=== PATIENT | female | born 1955 | race Caucasian/White ===

== ENCOUNTER 2018-07-06 09:31 | Day surgery (SDC) | payer OTHER ==
--- OUTSIDE RECORDS SUMMARY | 2018-07-06 09:48 | XMS REPORT | Continuity of Care Document ---
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 [facility] [place] Encounter for Active Problem 06/28/2018 [facility] health-related [facility] [place] screening Raynaud's Active Problem 06/28/2018 [facility] [place] without gangrene [facility] use Active Problem 06/28/2018 [facility] of systemic [facility] [place] steroids Myalgia Active Problem 06/28/2018 [facility] Encounter for Active Problem 06/28/2018 [facility] long-term use [facility] [place] of other medications Other specified Active Problem 06/28/2018 [facility] abnormal [facility] [place] findings of blood chemistry Abdominal pain Active Diagnosis 06/19/2018 [facility] medical terminologist use Active Diagnosis 06/19/2018 [facility] [place] non-steroidal anti-inflammato perry (NSAID) Raynaud's Active Diagnosis 06/19/2018 [facility] syndrome [facility] [place] Medications Medication Details Route Status Patient Ordering Order Source Instructions Provider Date NIFEdipine ER 1 tablet Orally Active 30 MG Orally Vo [facility] on an Once a day 016 [facility] empty [place] stomach Calcium + D 1 tablet Orally Active 315-200 Vo [facility] with meals MG-UNIT Orally Ctr of Once a day [place] Lipitor 1 tablet Orally Active 20 MG Orally Vo [facility] Once a day [facility] [place] PredniSONE 1 tablet Orally Active 10 MG Orally Vo Rhe[facility] with food Once a day Ctr of or milk [place] Rituxan 375mg/m2 Intravenous Active 100 MG/10ML Vo Rheum Intravenous Ctr of every 4 weeks [place] Benadryl 1 tablet Orally Active 200 mg Orally Vo [facility] as needed at bed time [facility] [place] ASA 1 tab Oral Active 325 mg Oral Vo [facility] once a day [facility] [place] Nexium 2 capsule Orally Active 40 MG Orally Vo [facility] Once a day [facility] [place] Gabapentin 1 capsule Orally Active 300 MG Orally Vo Rhe[facility] Three times a Ctr of day [place] Azathioprine 1 tablet Orally Active 50 MG Orally Vo Rhe[facility] twice a day [facility] [place] Sildenafil 1 tablet Orally Active 50 MG Orally Vo [facility] Citrate Twice a day [facility] [place] Multi Vitamin 1 tablet Orally Active Orally Once a Vo [facility] Daily day [facility] [place] Allergies, Adverse Reactions, Alerts Substance Category Reaction Severity Reaction Status Date Comments Source type Reported Methotrexate Adverse Info Not Adverse Active Rheum Reaction Available Reaction 8 [facility] [place] Immunizations Immunization Date Given Site Status Last Updated Comments Source Results Order Results Value Reference Date Interpretation Comments Source Name Range Vital Signs Vital Sign Value Date Comments Source Weight 147.4 12/23/2017 [facility] Height 72 12/23/2017 [facility] Heart Rate 111 12/23/2017 [facility] Diastolic (mm Hg) 79 12/23/2017 [facility] Systolic (mm Hg) 117 12/23/2017 [facility] Encounters Location Location Encounter Encounter Reason Attending ADM DC Status Source Details Type Number For Provider Date Date Visit Procedures Procedure Code Date Perfomer Comments Source
--- OUTSIDE RECORDS SUMMARY | 2018-07-06 09:49 | XMS REPORT ---
:1955 Author Organization eClinicalWorks Care Team Providers Name Role Phone Jay Arellano Provider Role Unavailable Allergies, Adverse Reactions, Alerts Substance Reaction Event Type N.K.D.A. 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 Medications Medication Code Code Instructions Start End Status Dosage System Date Date Rituxan [facility] [address]-33 10 MG/ML Apr 01, Active as Intravenous 2019 directed Sildenafil [facility] 34637843178 50 MG Orally Apr 01, Active 1 tablet Citrate Once a day 2019 as needed Esomeprazole [facility] 30148135623 40 MG Apr 01, Active as Sodium Intravenous 2019 directed Ibuprofen [facility] 29815639539 200 MG Orally Active 1 tablet Three times a with food day or milk as needed aspirin ND 0 Apr 01, Active not 2019 defined PredniSONE ND 39602512509 10 MG Orally Apr 01, Active 1 tablet Once a day 2019 NIFEdipine ND 70240307761 30 MG Orally Apr 01, Active as 2019 directed Results No Known Results Summary Purpose eClinicalWorks Submission
--- OUTSIDE RECORDS SUMMARY | 2018-07-06 09:49 | XMS REPORT ---
:1955 Author Organization eClinicalWorks Care Team Providers Name Role Phone Jay Arellano Provider Role Unavailable Allergies No Known Allergies Problems No Known Problems Medications No Known Medications Results No Known Results Summary Purpose eClinicalWorks Submission
--- OUTSIDE RECORDS SUMMARY | 2018-07-06 09:49 | XMS REPORT ---
:1955 Author Organization eClinicalWorks Care Team Providers Name Role Phone Maryanne Sumner Provider Role Unavailable Allergies, Adverse Reactions, Alerts Substance Reaction Event Type Methotrexate Info Not Available Drug Allergy Problems Problem Type Condition Code Onset Dates Condition Status Problem Heartburn R12 Active Problem Vitamin D deficiency E55.9 Active Problem Localized scleroderma L94.0 Active Problem Other terminal gauger (current) drug Z79.899 Active therapy Problem Encounter for health-related Z13.9 Active screening Problem Raynaud's syndrome without gangrene I73.00 Active Problem detention (current) use of systemic Z79.52 Active steroids Problem Myalgia M79.1 Active Problem Encounter for long-term (current) Z79.899 Active use of other medications Problem Other specified abnormal findings R79.89 Active of blood chemistry Assessment Multiple sclerosis G35 Active Assessment Abdominal pain R10.9 Active Assessment Other terminal gauger (current) drug Z79.899 Active therapy Assessment Heartburn R12 Active Assessment Localized scleroderma L94.0 Active Assessment detention (current) use of Z79.1 Active non-steroidal anti-inflammatories (NSAID) Assessment Raynaud's syndrome I73.00 Active Problem Multiple sclerosis G35 Active Medications Medication Code Code Instructions Start End Status Dosage System Date Date Calcium + D [facility] 89228735840 315-200 MG-UNIT Active 1 tablet Orally Once a with meals day Lipitor ND 15161308697 20 MG Orally Active 1 tablet Once a day PredniSONE ND 83274111795 10 MG Orally Active 1 tablet Once a day with food or milk Rituxan [facility] 63911698756 100 MG/10ML Active 375mg/m2 Intravenous every 4 weeks Benadryl ND 62748065405 200 mg Orally Active 1 tablet at bed time as needed ASA NDC 0 325 mg Oral Active 1 tab once a day Nexium ND 41984254774 40 MG Orally Active 2 capsule Once a day Gabapentin ND 44753050778 300 MG Orally Active 1 capsule Three times a day Azathioprine ND 34412725604 50 MG Orally Active 1 tablet twice a day Sildenafil [facility] 73328837903 50 MG Orally Active 1 tablet Citrate Twice a day Multi Vitamin [facility] 55927698933 Orally Once a Active 1 tablet Daily day NIFEdipine ER [facility] 29689941301 30 MG Orally Mar 10, Active 1 tablet Once a day 2015 on an empty stomach Vital Signs Date/Time: Dec 23, 2017 BMI 19.99 Index Weight 147.4 lbs Height 72 in Cardiac Monitoring Heart Rate 111 /min Blood Pressure Diastolic 79 mm Hg Blood Pressure Systolic 117 mm Hg Results No Known Results Summary Purpose eClinicalWorks Submission
--- OUTSIDE RECORDS SUMMARY | 2018-07-06 09:49 | XMS REPORT ---
:1955 Author Organization eClinicalWorks Care Team Providers Name Role Phone Maryanne Sumner Provider Role Unavailable Allergies No Known Allergies Problems Problem Type Condition Code Onset Dates Condition Status Problem Heartburn R12 Active Problem Vitamin D deficiency E55.9 Active Problem Localized scleroderma L94.0 Active Problem Multiple sclerosis G35 Active Problem Other detention (current) drug Z79.899 Active therapy Problem Encounter for health-related Z13.9 Active screening Problem Raynaud's syndrome without gangrene I73.00 Active Problem [facility] (current) use of systemic Z79.52 Active steroids Problem Myalgia M79.1 Active Problem Encounter for long-term (current) Z79.899 Active use of other medications Problem Other specified abnormal findings R79.89 Active of blood chemistry Medications No Known Medications Results No Known Results Summary Purpose eClinicalWorks Submission
--- OUTSIDE RECORDS SUMMARY | 2018-07-06 09:49 | XMS REPORT ---
[...] Start End Status Dosage System Date Date Sildenafil ND 41698279189 50 MG Orally Apr 01, Active 1 tablet Citrate Once a day 2019 as needed Ibuprofen ND 18122016225 200 MG Orally Active 1 tablet Three times a with food day or milk as needed Esomeprazole [facility] 51135752578 40 MG Apr 01, Active as Sodium Intravenous 2018 directed PredniSONE ND 41664166110 10 MG Orally Apr 01, Active 1 tablet Once a day [address] [facility] [address]-48 10 MG/ML Apr 01, Active as Intravenous [address] [facility] 0 Apr 01, Active [place] 2019 [place] [address]-50 30 MG Orally Apr 01, Active as 2019 directed Results No Known Results Summary Purpose eClinicalWorks Submission
--- OUTSIDE RECORDS SUMMARY | 2018-07-06 09:49 | XMS REPORT ---
:1955 Author Organization eClinicalWorks Care Team Providers Name Role Phone Maryanne Sumner Provider Role Unavailable Allergies No Known Allergies Problems Problem Type Condition Code Onset Dates Condition Status Problem Heartburn R12 Active Problem Vitamin D deficiency E55.9 Active Problem Localized scleroderma L94.0 Active Problem Multiple sclerosis G35 Active Problem Other nursing home (current) drug Z79.899 Active therapy Problem Encounter for health-related Z13.9 Active screening Problem Raynaud's syndrome without gangrene I73.00 Active Problem [facility] (current) use of systemic Z79.52 Active steroids Problem Myalgia M79.1 Active Problem Encounter for long-term (current) Z79.899 Active use of other medications Problem Other specified abnormal findings R79.89 Active of blood chemistry Medications No Known Medications Results No Known Results Summary Purpose eClinicalWorks Submission
[2018-07-06] MEDS ORDERED: Zoledronic Acid/Mannitol/Water 5 MG/100 ML INFUS.BOT IV ONE (10:00)
== END 2018-07-06 10:30 | disposition home or self-care (01) ==
LOC: DS 09:31
PROVIDERS: ATTEND Obstetrics & Gynecology
DX: M85.80 Other specified disorders of bone density and structure, unspecified site (principal)
CPT/HCPCS: 96365; J3489

== ENCOUNTER 2021-06-23 17:13 | Emergency (ER) | payer OTHER ==
--- OUTSIDE RECORDS SUMMARY | 2021-06-23 17:17 | XMS REPORT | Continuity of Care Document ---
:[address] [facility] t Address [address] [place] [address] Care Team Providers Name Role Phone TRINITY Primary Care Physician Unavailable RADIOLOGY Attending Clinician Unavailable Radiology Attending Clinician Unavailable VILARDO Admitting Clinician Unavailable Payers Payer Name Policy Type Policy Number Effective Date Expiration Date Jayro melchor MEDICARE PART A [id number] 2018 \T\ B 00:00:00 [employer] [id number] 2018 00:00:00 Problems Condition Condition Condition Status Onset Resolution Last Treating Co mments Source Name Details Category Date Date Treatment Clinician Date Temporary Temporary Disease Active Uni vers cerebral cerebral 4-29 ity of vascular vascular 00:00: [place] dysfunctio dysfunctio 00 Me dical n n Branch Multiple Multiple Disease Active Unive rs sclerosis, sclerosis, 3-16 it y of [place] 00 [facility] Branch Hyperlipid Hyperlipid Disease Active U nivers emia emia 3-16 ity of 00:00: [place] 00 Medical [facility] Osteopenia Osteopenia Disease Active 2016 U nivers 3-16 ity of 00:00: [place] 00 [facility] Neuropathy Neuropathy Disease Active U nivers , , 3-16 [place] peripheral peripheral [place] Pain in Pain in Diagnosis [facility] left wrist left wrist Me moria l Outpati ent Clinics Closed Closed Diagnosis Active [facility] nondisplac nondisplac Shilpa kes - ed ed Memoria fracture fracture l of of Outpati triquetrum triquetrum en t of left of left Clinics wrist, wrist, initial initial encounter encounter Carpal Carpal Diagnosis Active [facility] instabilit instabilit Shilpa kes - y of left y of left [place] wrist with wrist with l dorsal dorsal Outpati intercalat intercalat en t ed segment ed segment Cl inics instabilit instabilit y y Allergies, Adverse Reactions, Alerts Allergy Allergy Status Severity Reaction(s) Onset Inactive Treating Comm ents Source Name Type Date Date Clinician NO KNOWN Drug Active Univers ALLERGIE Class ity of [facility] NO KNOWN Allergy Active [facility] Social History Social Habit Start Date Stop Date Quantity Comments Source Exposure to Not sure [facility] SARS-CoV-2 [place] [facility] (event) [place] Alcohol intake 2015-11-10 2015-11-10 Current drinker Unive rsity of 00:00:00 00:00:00 of alcohol [place] [facility] (finding) [place] Sex [birth year] Universit y of 00:00:00 00:00:00 [facility] Smoking Status Start Date Stop Date Source Never smoker [facility] Medications Ordered Filled Start Stop Current Ordering Indication Dosage Frequency Signature Comments Components Source Medication Medication Date Date Medication? Clinician (SIG) Name Name Esomeprazol Esomeprazol 2018- Yes Jay as [facility] Sodium e Sodium 04-01 Arellano directed Patric es - 00:00: [facility] 00 l Outpati ent Clinics PredniSONE PredniSONE Yes Jay [address] [facility] - Arellano [facility] - 00:00: [facility] 00 [facility] Outpati ent Clinics Rituxan Rituxan 2018- Yes Jay as [facility] -03 Arellano directed [facility] - 00:00: [facility] ent Clinics aspirin aspirin 2018- Yes Jay not [facility] -03 Arellano defined [facility] - 00:00: [facility] 00 l Outpati ent Clinics NIFEdipine NIFEdipine 2018- Yes Jay as [facility] 1-03 Arellano directed [facility] - 00:00: [facility] 00 l Outpati ent Clinics Sildenafil Sildenafil 2018- Yes Jay [address] [address] Citrate Citrate 04-01 Arellano as needed Luke s - 00:00: Memoria 00 l Outpati ent Clinics dimethyl Yes 240mg Take 240 Univ ers fumarate 9-13 mg by ity of (TECFIDERA) 10:14: mouth 2 Anthony as 240 mg 24 (two) Medical capsule times Branch daily. atorvastati Yes 20mg Take 20 mg Univers n (LIPITOR) 9-13 by mouth 2 it y of 20 mg 10:14: (two) [place] tablet 24 times Medical daily. Branch FA/MV,CA,IR Yes 1{tbl} Take 1 Tab Univers ON,MIN/LYCO 9-13 by mouth ity of PENE/LUT 10:14: daily. [place] (MULTIVITAL 24 Medical ORAL) Branch calcium-vit Yes 1{tbl} Take 1 Tab Univers clarke D 9-13 by mouth 2 ity of (OSCAL-500) 10:14: (two) [place] 500 24 times Medical mg(1,250mg) daily. Branch -200 unit per tablet lansoprazol Yes 30mg Take 30 mg Univers e 9-13 by mouth ity of (PREVACID) 10:14: daily. [place] 30 mg 24 Medical capsule Branch venlafaxine Yes 75mg Take 75 mg Univers XR (EFFEXOR 8-12 by mouth ity of XR) 75 mg 10:08: daily with [place] 24 [place] 37 breakfast. Medical capsule Branch hydroxychlo Yes 300mg Take 1.5 U nivers roquine 8-12 tablets by ity of (PLAQUENIL) 00:00: mouth [place] 200 mg 00 daily. Medical tablet Branch aspirin 325 Yes 325mg Take 1 Uni vers mg tablet 8-01 tablet by ity o f 00:00: mouth [place] 00 daily. Medical Branch Ibuprofen Ibuprofen Yes Jay [address] [facility] [address] Arellano with food [facility] - or milk as [facility] Clin[facility] Procedures Procedure Date / Time Performing Clinician Source Performed DEXA AXIAL (HIP AND SPINE) 2021-06-05 15:58:35 Requisition, Madi cho [facility] NOTICE OF BILLING 2021-06-05 15:43:58 Doctor Unassigned, [facility] PRACTICES FOR MEDICARE [facility] PATIENTS [facility] PATIENT FINANCIAL 2021-06-05 15:43:42 [facility]IC[facility] NO SHOW OR MISSED 2021-06-05 15:43:27 Doctor Unassigned, [facility] APPOINTMENT POLICY [facility] ACKNOWLEDGEMENT NOTICE OF PRIVACY 2021-06-05 15:43:15 Doctor Unapascale, Eric [facility] PRACTICES [facility] CONSENT/REFUSAL FOR 2021-06-05 15:42:50 Doctor Unapascale, Unive [facility] DIAGNOSIS AND TREATMENT [facility] ASSIGNMENT OF BENEFITS 2021-06-05 15:42:36 Doctor Unassigned, [facility] Encounters Start End Encounter Admission Attending Care Care Encounter Source Date/Time Date/Time Type Type Clinicians Facility Department ID 2021-06-05 2021-06-05 Outpatient R RADIOLOGY [facility] [id number] Univers 09:46:14 23:59[facility]-06-[facility] 2021-06-05 Hospital Radiology [facility] [id number] Univers 09:40:00 23:59:00 [facility] [place] [id number] [id number] [facility] 800 Branch 2021-06-05 2021-06-05 Outpatient R RADIOLOGY [facility] [id number] Univers 00:00:00 00:00:00 [id number] it of [facility] 2018-05-03 2018-05-03 [facility] [place] [id number] [address] 14:00:00 14:00:00 [facility] 2018-04-02 2018-04-02 [facility] [id number] 09:49:00 09:49:00 [facility] 2018-04-01 2018-04-01 [facility] [id number] 11:00:00 11:00:00 [facility] Results This patient has no known results.
--- NOTE | 2021-06-23 19:44 | RAD REPORT ---
EXAM DESCRIPTION: RAD - Wrist Left 3 View - 06/23/2021 6:54 pm CLINICAL HISTORY: Left wrist pain status post injury FINDINGS: No fracture or dislocation is seen. 6 millimeter lucency within the scaphoid with a sclerotic border may represent a cyst. If the patient continues to have symptoms to suggest an occult fracture then a followup plain film se perry in 7 days would be recommended
--- NOTE | 2021-06-23 20:12 | EDPHYS ---
Physician Documentation [facility] Name: Steffanie Downs Age: 66 yrs Sex: Female : 1955 Arrival Date: 06/23/2021 Time: 17:16 Bed 7 Private MD: ED Physician Eduardo Barreto HPI: 06/23 19:35 This 66 yrs old Female presents to ER via Ambulatory with complaints of Fall Injury. 7 19:35 Details of fall: The patient fell from an upright position, while walking, and struck a mh7 concrete surface. Onset: The symptoms/episode began/occurred 3 day(s) ago. Associated injuries: The patient sustained injury to the head, contusion, left wrist, painful injury. Severity of symptoms: At their worst the symptoms were moderate, 3 day(s) ago, in the emergency department the symptoms have improved, moderately. States that she was walking and stepped off a curb onto outstretched hand hitting her face and left wrist 3 days ago. Denies any LOC or other complaints.. Historical: - Allergies: 17:35 No Known Allergies; ab2 - PMHx: 17:35 Raynauds; Scleraderma; Multiple sclerosis; Rheumatoid arthritis; ab2 - PSHx: 17:35 Appendectomy; ab2 - Immunization history:: Client reports receiving the 2nd dose of the Covid vaccine. - Social history:: Smoking status: Patient denies any tobacco usage or history of. ROS: 19:35 Constitutional: Negative for fever, chills, and weight loss, Eyes: Negative for injury, mh7 pain, redness, and discharge, ENT: Negative for injury, pain, and discharge, Neck: Negative for injury, pain, and swelling, Cardiovascular: Negative for chest pain, palpitations, and edema, Respiratory: Negative for shortness of breath, cough, wheezing, and pleuritic chest pain, Abdomen/GI: Negative for abdominal pain, nausea, vomiting, diarrhea, and constipation, Back: Negative for injury and pain, : Negative for injury, bleeding, discharge, and swelling, Neuro: Negative for headache, weakness, numbness, tingling, and seizure, Psych: Negative for depression, anxiety, suicide ideation, homicidal ideation, and hallucinations, Allergy/Immunology: Negative for hives, rash, and allergies, Endocrine: Negative for neck swelling, polydipsia, polyuria, polyphagia, and marked weight changes, Hematologic/Lymphatic: Negative for swollen nodes, abnormal bleeding, and unusual bruising. Exam: 19:35 Constitutional: This is a well developed, well nourished patient who is awake, alert, mh7 and in no acute distress. Eyes: Pupils equal round and reactive to light, extra-ocular motions intact. Lids and lashes normal. Conjunctiva and sclera are non-icteric and not injected. Cornea within normal limits. Periorbital areas with no swelling, redness, or edema. Neck: Trachea midline, no thyromegaly or masses palpated, and no cervical lymphadenopathy. Supple, full range of motion without nuchal rigidity, or vertebral point tenderness. No Meningismus. Chest/axilla: Normal chest wall appearance and motion. Nontender with no deformity. No lesions are appreciated. Cardiovascular: Regular rate and rhythm with a normal S1 and S2. No gallops, murmurs, or rubs. Normal PMI, no JVD. No pulse deficits. Respiratory: Lungs have equal breath sounds bilaterally, clear to auscultation and percussion. No rales, rhonchi or wheezes noted. No increased work of breathing, no retractions or nasal flaring. Abdomen/GI: Soft, non-tender, with normal bowel sounds. No distension or tympany. No guarding or rebound. No evidence of tenderness throughout. Back: No spinal tenderness. No costovertebral tenderness. Full range of motion. Skin: Warm, dry with normal turgor. Normal color with no rashes, no lesions, and no evidence of cellulitis. 19:35 Neuro: Awake and alert, GCS 15, oriented to person, place, time, and situation. Cranial nerves II-XII grossly intact. Motor strength 5/5 in all extremities. Sensory grossly intact. Cerebellar exam normal. Normal gait. Psych: Awake, alert, with orientation to person, place and time. Behavior, mood, and affect are within normal limits. 19:35 Musculoskeletal/extremity: Extremities: noted in the left wrist: abrasion, tenderness, ROM: limited active range of motion due to pain, in the left wrist, limited passive range of motion due to pain, in the left wrist, Circulation is intact in all extremities. Sensation intact. Compartment Syndrome exam of affected extremity: is normal. no numbness, no tingling, no sensation deficit, no palor, no weak pulses, Joints: the left wrist displays painful range of motion, tenderness, Weight bearing: able to fully bear weight, without difficulty, Tendon exam: specific tendon testing normal through active and passive range of motion 19:35 Head/face: Noted is ecchymosis, that is mild, of the right periorbital area. [facility] 19:35 ENT: External ear(s): are unremarkable, Ear canal(s): are normal, TM's: are normal, no hemotympanum, no rupture, hemotympanum, is not appreciated, bilaterally, Nose: is normal, Mouth: is normal, Posterior pharynx: is normal, Dental exam: normal, Voice: is normal. 19:35 Eyes: Periorbital structures: ecchymosis, that is mild, on the right periorbital area. [facility] 19:35 Eyes: Pupils: equal, round, and reactive to light and accomodation, Extraocular movements: intact throughout, Conjunctiva: normal, Sclera: no appreciated abnormality. Vital Signs: 17:33 BP 164 / 104; Pulse 79; Resp 17; Temp 98.1; Pulse Ox 100% on R/A; Weight 68.04 kg; ab2 Height 6 ft. 0 in. (182.88 cm); Pain 3/10; 20:06 BP 169 / 88; Pulse 77; Resp 16 S; Pulse Ox 100% on R/A; bb 17:33 Body Mass Index 20.34 (68.04 kg, 182.88 cm) ab2 Procedures: 20:12 Splinting: Splint applied to left wrist using wrist splint, Thumb spica. applied by [facility] nurse. Examined by me, post splint application: neurovascular intact, 2+ distal pulses palpable, brisk capillary refill noted, Patient tolerated well, preformed splint. MDM: 20:06 Differential diagnosis: abrasion, closed head injury, contusion, fracture. Data [facility] reviewed: vital signs, nurses notes, radiologic studies, plain films. Data interpreted: Pulse oximetry: on room air is 100 %. Interpretation: normal. Counseling: I had a detailed discussion with the patient and/or guardian regarding: the historical points, exam findings, and any diagnostic results supporting the discharge/admit diagnosis, the presence of at least one elevated blood pressure reading (>120/80) during this emergency department visit, radiology results, the need for outpatient follow up, a orthopedic surgeon, to return to the emergency department if symptoms worsen or persist or if there are any questions or concerns that arise at home. Response to treatment: the patient's symptoms have markedly improved after treatment. Refusal of service: The patient/guardian displays adequate decision making capability and despite a detailed discussion of alternatives, benefits, risks, and consequences refuses: CT Scan. ED course: Well appearing, NAD, VSS, no focal neurological deficits. Discussed test results and findings and placement in left thumb spica splint and ortho follow up. Patient declined CT head/face for injury stating that she has already been evaluated by a doctor for this. She will follow up with her doctor.. 20:11 Patient medically screened. 7 20:14 Refusal of service: The patient/guardian displays adequate decision making capability mh7 and despite a detailed discussion of alternatives, benefits, risks, and consequences refuses: Medications. ED course: States that she is taking Ibuprofen at home and declines any other medication offer.. 06/23 17:53 Order name: Wrist Left (3 View) XRAY; Complete Time: 19:49 iw 06/23 19:51 Order name: Thumb Spica Splint: Left wrist; Complete Time: 20:08 mh7 Administered Medications: No medications were administered Disposition Summary: 06/23/21 20:11 Discharge Ordered Location: Home mh7 Problem: new mh7 Symptoms: have improved mh7 Condition: Stable mh7 Diagnosis - Fall (on)(from) sidewalk curb mh7 - Pain in left wrist - Sprain mh7 - Facial injury,contusion mh7 Followup: mh7 - With: Private Physician - When: 1 - 2 days - Reason: Worsening of condition, Recheck today's complaints, Continuance of care, Re-evaluation by your physician Followup: mh7 - With: Carlo Jimenez MD - When: 2 - 3 days - Reason: Worsening of condition, Recheck today's complaints Discharge Instructions: - Discharge Summary Sheet mh7 - Wrist Splint, Adult, [id number] mh7 - Wrist Pain, Adult, [id number] mh7 - Facial or Scalp Contusion, [id number] mh7 - Wrist Sprain, Adult mh7 Forms: - Medication Reconciliation Form mh7 - Thank You Letter mh7 - Antibiotic Education 7 - Prescription Opioid Use [facility] Signatures: Dispatcher [employer] Eduardo Martinez MD MD 7 Eric Whipple ab2 Corrections: (The following items were deleted from the chart) 17:36 17:35 PSHx: None; ab2 ab2
--- NOTE | 2021-06-23 20:12 | ER ---
Nurse's Notes [facility] Name: Steffanie Downs Age: 66 yrs Sex: Female : 1955 Arrival Date: 06/23/2021 Time: 17:16 Bed 7 Private MD: Diagnosis: Fall (on)(from) sidewalk curb;Pain in left wrist-Sprain;Facial injury,contusion Presentation: 06/23 17:33 Chief complaint: Patient states: "On I stepped off the curb wrong and face ab2 planted, I tried to catch myself and hurt my wrist." Pt c/o left wrist pain. Coronavirus screen: Vaccine status: Patient reports receiving the 2nd dose of the covid vaccine. Client denies travel out of the [place] in the last 14 days. At this time, the client does not indicate any symptoms associated with coronavirus-19. Ebola Screen: Patient negative for fever greater than or equal to 101.5 degrees Fahrenheit, and additional compatible Ebola Virus Disease symptoms Patient denies exposure to infectious person. Patient denies travel to an Ebola-affected area in the 21 days before illness onset. No symptoms or risks identified at this time. Initial Sepsis Screen: Does the patient meet any 2 criteria? No. Patient's initial sepsis screen is negative. Does the patient have a suspected source of infection? No. Patient's initial sepsis screen is negative. Risk Assessment: Do you want to hurt yourself or someone else? Patient reports no desire to harm self or others. Onset of symptoms is unknown. 17:33 Method Of Arrival: Ambulatory ab2 18:49 Acuity: KRISTIE 3 ab2 Triage Assessment: 17:36 General: Appears in no apparent distress. uncomfortable, Behavior is calm, cooperative, ab2 appropriate for age. Pain: Complains of pain in left wrist and left hand. Neuro: Level of Consciousness is awake, alert, obeys commands, Oriented to person, place, time, situation, Appropriate for age. Respiratory: No deficits noted. Airway is patent Respiratory effort is even, unlabored, Respiratory pattern is regular, symmetrical. Historical: - Allergies: 17:35 No Known Allergies; ab2 - PMHx: 17:35 Raynauds; Scleraderma; Multiple sclerosis; Rheumatoid arthritis; ab2 - PSHx: 17:35 Appendectomy; ab2 - Immunization history:: Client reports receiving the 2nd dose of the Covid vaccine. - Social history:: Smoking status: Patient denies any tobacco usage or history of. Screenin:06 Abuse screen: Denies threats or abuse. Nutritional screening: No deficits noted. bb Tuberculosis screening: No symptoms or risk factors identified. Fall Risk None identified. Assessment: 20:06 General: Appears in no apparent distress. Behavior is calm, cooperative. Pain: bb Complains of pain in left wrist. Neuro: Level of Consciousness is awake, alert, obeys commands, Oriented to person, place, time, situation. Cardiovascular: Capillary refill < 3 seconds Patient's skin is warm and dry. Respiratory: Airway is patent Respiratory effort is even, unlabored, Respiratory pattern is regular. GI: No signs and/or symptoms were reported involving the gastrointestinal system. Derm: Skin is pink, warm \\T\\ dry. Musculoskeletal: Circulation, motion, and sensation intact. Reports pain in left wrist. 20:07 Derm: Bruising that is dark purple, to right eye. bb 20:17 Reassessment: Patient is alert, oriented x 3, equal unlabored respirations, skin bb warm/dry/pink. splint in place to left wrist pt able to use wrist states it feels better with the splint. Pt verbalized understanding of and agrees to plan of care discharge instructions given pt ambulated with steady gait to exit accompanied by family. Vital Signs: 17:33 BP 164 / 104; Pulse 79; Resp 17; Temp 98.1; Pulse Ox 100% on R/A; Weight 68.04 kg; ab2 Height 6 ft. 0 in. (182.88 cm); Pain 3/10; 20:06 BP 169 / 88; Pulse 77; Resp 16 S; Pulse Ox 100% on R/A; bb 17:33 Body Mass Index 20.34 (68.04 kg, 182.88 cm) ab2 ED Course: 17:16 Patient arrived in ED. mr 17:35 Triage completed. ab2 17:36 Arm band placed on right wrist. ab2 18:56 Wrist Left (3 View) XRAY In Process Unspecified. EDMS 19:02 Eduardo Barreto MD is Attending Physician. 7 20:06 Ana Pizarro RN is Primary Nurse. bb 20:06 Patient has correct armband on for positive identification. bb 20:06 No provider procedures requiring assistance completed. Patient did not have IV access bb during this emergency room visit. 20:09 Carlo Jimenez MD is Referral Physician. [facility] Administered Medications: No medications were administered Outcome: 20:11 Discharge ordered by . Luana 20:19 Discharged to home ambulatory, with family. bb 20:19 Condition: stable 20:19 Discharge instructions given to patient, Instructed on discharge instructions, follow up and referral plans. Demonstrated understanding of instructions, follow-up care. 20:19 Patient left the ED. bb Signatures: Dispatcher [employer] EDMS PrettyErika chen mr Ana Pizarro RN RN bb Eduardo Barreto MD MD [facility] Eric Whipple ab2 Corrections: (The following items were deleted from the chart) 17:36 17:35 PSHx: None; ab2 ab2 18:50 17:33 Acuity: KRISTIE 4 ab2 ab2
[2021-06-23 20:50] VITALS: TEMP 98.1; O2SAT 100
[2021-06-23 20:58] VITALS: BP 169/88
== END 2021-06-23 20:19 | disposition home or self-care (01) ==
LOC: ER 17:13
DX: S00.83XA Contusion of other part of head, initial encounter (principal); M25.532 Pain in left wrist; W17.89XA Other fall from one level to another, initial encounter; Y93.89 Activity, other specified; Y92.480 Sidewalk as the place of occurrence of the external cause
CPT/HCPCS: 99283

== ENCOUNTER 2021-09-02 17:49 | Emergency (ER) | payer OTHER ==
--- OUTSIDE RECORDS SUMMARY | 2021-09-02 17:52 | XMS REPORT | Continuity of Care Document ---
:1955 Author Organization [facility] t Address [address] [place] [address] Care Team Providers Name Role Phone TRINITY Primary Care Physician Unavailable RADIOLOGY Attending Clinician Unavailable Radiology Attending Clinician Unavailable VILARDO Admitting Clinician Unavailable Payers Payer Name Policy Type Policy Number Effective Date Expiration Date Jayro melchor MEDICARE PART A [id number] 2018 \T\ B 00:00:00 [employer] [id number] 2018 00:00:00 Problems Condition Condition Condition Status [...] [place] 00 [facility] Hyperlipid Hyperlipid Disease Active U nivers emia emia 3-16 ity of 00:00: [place] 00 [facility] Osteopenia Osteopenia Disease Active 2016 U nivers 3-16 ity of 00:00: [place] 00 [facility] Neuropathy Neuropathy Disease Active U nivers , , 3-16 ity of peripheral peripheral 00:[place]: [place] [facility] Pain in Pain in Diagnosis Active Commo n joint of joint of Spirit left wrist left wrist - [facility] Closed Closed Diagnosis Active Common nondisplac nondisplac Sp aleksandra ed ed - [facility] fracture fracture [facility] triquetrum triquetrum Me dical of left of left Center wrist, wrist, initial initial encounter encounter Carpal Carpal Diagnosis Active Common instabilit instabilit Sp aleksandra y of left y of left - [facility] I wrist with wrist with St dorsal dorsal [facility] intercalat intercalat Me dical ed segment ed segment Ce nter instabilit instabilit y y Allergies, Adverse Reactions, Alerts Allergy Allergy Status Severity Reaction(s) Onset Inactive Treating Comm ents Source Name Type Date Date Clinician NO KNOWN Allergy Active [facility] NO KNOWN Drug Active [facility] ALLERGIE Class ity of S [facility] Social History Social Habit Start Date Stop Date Quantity Comments Source Exposure to Not sure [facility]-CoV-2 [facility] (event) [place] Alcohol intake 2015-11-10 2015-11-10 Current drinker Unive rsity of 00:00:00 00:00:00 of alcohol [facility] (finding) Branch Sex Assigned At [birth year] Universit y of 00:00:00 00:00:00 [facility] Smoking Status Start Date Stop Date Source Never smoker [facility] Medications Ordered Filled Start Stop Current Ordering Indication Dosage Frequency Signature Comments Components Source Medication Medication Date Date Medication? Clinician (SIG) Name Name Esomeprazol Esomeprazol 2019-0 Yes Jay as Common e Sodium e Sodium 04-01 Arellano directed Spi rit 00:00: - [facility] PredniSONE PredniSONE 2019-0 Yes Jay 1 tablet Common 04-01 Arellano Spirit 00:00: - [facility] Rituxan Rituxan 2019-0 Yes Jay as Comm on 04-01 Arellano directed Spirit 00:00: - [facility] aspirin aspirin 2019-0 Yes Jay not Comm on 04-01 Arellano defined Spirit 00:00: - [facility] NIFEdipine NIFEdipine 2019-0 Yes Jay as Common 04-01 Arellano directed Spirit 00:00: - [facility] Sildenafil Sildenafil 2019-0 Yes Jay 1 tablet Common Citrate Citrate 03 Arellano as needed Spir it 00:00: - [facility] dimethyl 2016-0 Yes 240mg Take 240 Univ ers fumarate [...] by mouth ity of PENE/LUT 10:14: daily. [place] (MULTIVITAL 24 Medical ORAL) Branch calcium-vit Yes [...] Branch Ibuprofen Ibuprofen Yes Jay 1 tablet Common Arellano with food Spirit or milk as - [facility] needed [facility] Procedures Procedure Date / Time Performing Clinician Source Performed DEXA AXIAL (HIP AND SPINE) 2021-06-05 15:58:35 Requisition, Madi cho [facility] NOTICE OF BILLING 2021-06-05 15:43:58 Doctor Cesar, [place] [employer] FOR MEDICARE [facility] PATIENTS [facility] PATIENT FINANCIAL 2021-06-05 15:43:42 Doctor Cesar, [facility] POLICY [facility] NO SHOW OR MISSED 2021-06-05 15:43:27 Doctor Cesar, [place] [employer] APPOINTMENT POLICY [facility] ACKNOWLEDGEMENT NOTICE OF PRIVACY 2021-06-05 15:43:15 Doctor Unassigned, [place] [employer] [facility] CONSENT/REFUSAL FOR 2021-06-05 15:42:50 Doctor Unassigned, Unive [facility] DIAGNOSIS AND TREATMENT [facility] ASSIGNMENT OF BENEFITS 2021-06-05 15:42:36 [facility], [facility] Encounters Start End Encounter Admission Attending Care Care Encounter Source Date/Time Date/Time Type Type Clinicians Facility Department ID 2021-06-05 2021-06-05 Outpatient R RADIOLOGY [facility] [id number] Univers 09:46:14 23:59:00 ity of [facility] 2021-06-05 2021-06-05 Hospital Radiology [facility] [id number] Univers 09:40:00 23:59:00 Encounter [place] [id number] ity [facility] [id number] [facility] [id number] [place] [id number] Branch 2021-06-05 2021-06-05 Outpatient R RADIOLOGY [facility] [id number] Univers 00:00:00 00:00:00 [id number] ity of [facility] 2018-05-03 2018-05-03 Outpatient [place] 23 [id number] Common 14:00:00 14:00:00 [facility] 2018-04-02 2018-04-02 Outpatient [place] [id number] Common 09:49:00 09:49:00 t [facility] Bone [facility] Sp[facility] t and Joint Joint - [facility] 2018-04-01 2018-04-01 Outpatient Steve [place] 23 [id number] Common 11:00:00 11:00:00 t [facility] Bone and Spiri t and Joint Joint - [facility] Results This patient has no known results.
--- NOTE | 2021-09-02 18:21 | RAD REPORT ---
EXAM DESCRIPTION: CT - Head Brain Wo Cont - 09/02/2021 6:10 pm CLINICAL HISTORY: Neuro deficit, acute, stroke suspected COMPARISON: Brain W/Wo Cont dated 04/05/2020 TECHNIQUE: Axial 5 mm thick images of the head were obtained without IV contrast. All CT scans are performed using dose optimization technique as appropriate and may include automated exposure control or mA/KV adjustment according to patient size. FINDINGS: No intracranial hemorrhage is present. No mass effect, edema or shift of midline structure s. No cortical based infarction is evident. No cortical edema or sulcal effacement. No abnormal extra -axial fluid collections. Ventricles are normal. Atrophy changes are minimal. Prominent chronic ische fermin changes are seen in the cerebral white matter similar to the MRI findings. Mastoid air cells are clear. Minimal fluid level in the left maxillary sinus. No acute bony findings. Findings telephoned to Dr Parada 6:16 p.m. IMPRESSION: No intracranial hemorrhage. No acute cortical level infarction identifiable. Prominent chronic ischemic changes are seen in the cerebral white matter. Chronic ischemic changes can mask nonhemorrhagic acute infarction. MR brain followup can be obtained if there is ongoing concern for acute ischemia.
[2021-09-02 18:25] LABS: Absolute Lymphocytes (CBC) 1.1 K/uL (0.7-4.9); Hematocrit 42.5 % (36.0-45.0); MPV 6.8 fL (7.6-11.3); RBC Red Blood Cell Count 4.94 M/uL (3.86-4.86)
[2021-09-02] MEDS ORDERED: LABETALOL HCL 100 MG/20 ML ONE (18:30)
[2021-09-02 18:31] LABS: Protime INR 0.94
[2021-09-02] MEDS ORDERED: TENECTEPLASE 50 MG/10 ML VIAL IV ONE (18:31)
[2021-09-02] MEDS ORDERED: MORPHINE 2 MG/ML SYR ONE (18:37)
[2021-09-02] MEDS ORDERED: ONDANSETRON 4 MG/2 ML VIAL ONE (18:38)
[2021-09-02 18:39] LABS: Potassium 3.3 mmol/L (3.5-5.1)
--- NOTE | 2021-09-02 19:09 | RAD REPORT ---
EXAM DESCRIPTION: RAD - Chest Single View - 09/02/2021 6:33 pm CLINICAL HISTORY: expressive aphasia, Stroke protocol chest film COMPARISON: Portable 10/16/2016 TECHNIQUE: AP portable chest image was obtained 09/02/2021 6:33 pm . FINDINGS: No acute lung parenchymal process. Chronic interstitial lung disease and right apical pleu ral scarring noted and stable. Heart and vasculature are normal. No measurable pleural effusion and n o pneumothorax. No acute bony abnormality seen. No acute aortic findings suspected. IMPRESSION: No acute cardiopulmonary process. No significant change from comparison study.
--- NOTE | 2021-09-02 20:02 | RAD REPORT ---
EXAM DESCRIPTION: CT - Head angio - 09/02/2021 7:28 pm CLINICAL HISTORY: Neuro deficit, acute, stroke suspected TECHNIQUE: During dynamic enhancement using nonionic IV contrast, axial 1 millimeter thick images of the head were obtained. Sagittal and axial reconstruction images were generated using MIP technique and reviewed. All CT scans are performed using dose optimization technique as appropriate and may include automated exposure control or mA/KV adjustment according to patient size. COMPARISON: CT head same date FINDINGS: No aneurysm or vascular malformation identified. Major venous sinuses are patent. No stenosis, named branch occlusion, vasculitis or other significant vascular finding identifiable. A therosclerotic calcifications are present in the bilateral internal carotid artery cavernous and supr aclinoid portions. These atherosclerotic changes to not cause significant luminal narrowing. There is mild tortuosity of the vertebrobasilar vasculature. The right P1 [employer] segment is absent or atrophic a s normal anatomic variant. The patient has a large right posterior communicating artery supplying the right [employer] distribution. IMPRESSION: No named branch occlusion, significant stenosis or other significant CTA head finding.
--- NOTE | 2021-09-02 20:04 | RAD REPORT ---
EXAM DESCRIPTION: CT - Neck Angio - 09/02/2021 7:28 pm CLINICAL HISTORY: Neuro deficit, acute, stroke suspected TECHNIQUE: During dynamic enhancement using nonionic IV contrast, axial 2 mm thick images of the nec k were obtained. Sagittal and axial reconstruction images were generated using MIP technique and revi ewed. All CT scans are performed using dose optimization technique as appropriate and may include automated exposure control or mA/KV adjustment according to patient size. COMPARISON: CT head same date, CT angio head same day FINDINGS: No aneurysm or vascular malformation identified. No carotid or vertebral dissection. No aortic arch or great vessel origin abnormality seen. Vertebral artery origins unremarkable as well . Left vertebral artery is dominant as normal anatomic variant. No stenosis, vasculitis or other sign ificant carotid artery finding. No focal abnormality of either vertebral artery. Basilar artery is no rmal. Patient has minimal bilateral carotid bulb wall calcification resulting in no narrowing of the vessel lumen. IMPRESSION: Negative CT angio neck examination for acute or significant finding.
[2021-09-02] MEDS ORDERED: ACETAMINOPHEN 500 MG TAB ONE (21:12)
--- NOTE | 2021-09-02 21:23 | ER ---
Nurse's Notes [facility] Name: Steffanie Downs Age: 66 yrs Sex: Female : 1955 Arrival Date: 09/02/2021 Time: 17:53 Bed 19 Private MD: Diagnosis: Cerebral infarction, unspecified Presentation: 09/02 17:58 Chief complaint: Chief complaint: Patient states: Experienced sudden headache and ww slurred speech about 45 minutes ago. Patients son stated that she had trouble saying aspirin and threw the aspirin bottle. Family states her speech is still not back to normal at this time. 18:10 Coronavirus screen: Client denies travel out of the [place] in the last 14 days. Ebola ww Screen: Patient denies travel to an Ebola-affected area in the 21 days before illness onset. An acute neurological deficit is present. The patients blood glucose was checked before arriving to the hospital and was found to be normal. Initial Sepsis Screen: Does the patient meet any 2 criteria? No. Patient's initial sepsis screen is negative. Does the patient have a suspected source of infection? No. Patient's initial sepsis screen is negative. Risk Assessment: Do you want to hurt yourself or someone else? Patient reports no desire to harm self or others. Onset of symptoms was September 02, 2021. 18:10 Method Of Arrival: Wheelchair ww 18:10 Acuity: KRISTIE 2 ww Triage Assessment: 18:19 The onset of the patients symptoms was September 02, 2021 at 17:00. tw2 Stroke Activation: Symptom onset < 3 hours Physician: Stroke Attending; Name: ; Notified At: ; Arrived At: Physician: Chief Stroke Resident; Name: ; Notified At: ; Arrived At: Physician: Stroke Resident; Name: ; Notified At: ; Arrived At: Physician: ED Attending; Name: Dr. Parada; Notified At: ; Arrived At: Physician: ED Resident; Name: ; Notified At: ; Arrived At: Historical: - Allergies: 18:18 No Known Allergies; tw2 - PMHx: 18:14 Multiple Sclerosis; Raynauds; Rheumatoid Arthritis; scleraderma; ww - PSHx: 18:14 Appendectomy; ww - Immunization history:: Adult Immunizations. - Social history:: Smoking status: . - Family history:: not pertinent. - Hospitalizations: : No recent hospitalization is reported. Screenin:17 Abuse screen: Denies threats or abuse. Nutritional screening: No deficits noted. tw2 Tuberculosis screening: No symptoms or risk factors identified. Fall Risk None identified. Assessment: 18:02 General: Transported to CT scan. ww 18:15 T-PA (Activase) Screening:. General: Appears in no apparent distress. comfortable, ld1 Behavior is cooperative, appropriate for age, anxious. 18:15 Pain: Complains of pain in face Pain does not radiate. Pain currently is 8 out of 10 on ld1 a pain scale. Quality of pain is described as throbbing, Pain began 45 min ago. Neuro: Level of Consciousness is awake, alert, obeys commands, Oriented to person, place, time, situation, Reports headache since 45 min ago. Cardiovascular: Capillary refill < 3 seconds Patient's skin is warm and dry. Rhythm is sinus rhythm. Respiratory: Airway is patent Respiratory effort is even, unlabored. GI: Abdomen is flat, non-distended. : No signs and/or symptoms were reported regarding the genitourinary system. EENT: No signs and/or symptoms were reported regarding the EENT system. Derm: No signs and/or symptoms reported regarding the dermatologic system. Musculoskeletal: No signs and/or symptoms reported regarding the musculoskeletal system. 18:18 Patient has been NPO before screening. The patient is alert, and able to follow tw2 commands. The patient does not exhibit slurred or garbled speech. The patient is not exhibiting difficulty speaking. The patient does not exhibit difficulty understanding words. The patient is able to swallow own secretions with no drooling or need for suction. Patient tolerated one teaspoon of water. No drooling, immediate coughing, gurgling, or clearing of the throat was noted. The patient passed the bedside swallow screening. Oral medications may be given as ordered. Contact Physician for further diet orders. Provider notified of bedside swallow screening results: Ramón Parada MD. 18:20 Reassessment: ERP at bedside discussing POC. ld1 18:28 VAN Scoring: Arm Drift: Patients demonstrates NO arm weakness. Patient is VAN Negative. ld1 Aphasia: No aphasia noted. Neglect: No neglect noted. General: Appears in no apparent distress. 19:40 Reassessment: No changes from previously documented assessment. Patient and/or family ll3 updated on plan of care and expected duration. Pain level reassessed. Patient is alert, oriented x 3, equal unlabored respirations, skin warm/dry/pink. Patient states feeling better. 20:30 Reassessment: Patient and/or family updated on plan of care and expected duration. Pain ll3 level reassessed. Patient is alert, oriented x 3, equal unlabored respirations, skin warm/dry/pink. Patient states symptoms have improved. 21:30 Reassessment: Patient and/or family updated on plan of care and expected duration. Pain ll3 level reassessed. Patient is alert, oriented x 3, equal unlabored respirations, skin warm/dry/pink. 21:55 Reassessment: Attempted to call report for transfer, was asked to call back in 15 mins, ll3 informed charge nurse patent was leaving [place] [employer] soon. 22:28 Reassessment: Gave report to GORAN Pride at [facility]. ll3 Vital Signs: 18:10 BP 182 / 112; Pulse 99; Resp 20; Temp 99.1; Pulse Ox 99% on R/A; ww 18:14 BP 193 / 116; Pulse 93; Resp 13; Pulse Ox 97% on R/A; ld1 18:24 BP 168 / 118; Pulse 85; Resp 16; Pulse Ox 97% on R/A; ld1 18:26 Weight 68.4 kg (M); Height 5 ft. 11 in. (180.34 cm) (R); ld1 18:34 BP 177 / 105; Pulse 84; Resp 18; Pulse Ox 97% on R/A; ld1 18:36 BP 170 / 106; rn 18:40 BP 170 / 107; Pulse 78; Resp 13; Pulse Ox 96% on R/A; ld1 18:48 BP 147 / 114; Pulse 76; Resp 14; Pulse Ox 96% on R/A; ld1 19:40 BP 172 / 92; Pulse 85; Resp 20; Pulse Ox 95% on R/A; ll3 20:52 BP 158 / 97; Pulse 83; Resp 18; Pulse Ox 97% on R/A; ll3 21:30 BP 153 / 92; Pulse 80; Resp 16; Pulse Ox 98% on R/A; ll3 18:26 Body Mass Index 21.03 (68.40 kg, 180.34 cm) ld1 NIH Stroke Scale Scores: 18:14 NIHSS Score: 1 rn 18:20 NIHSS Score: 1 ld1 ED Course: 17:53 Patient arrived in ED. as 17:54 Ramón Parada MD is Attending Physician. rn 18:01 Lilly Barajas, GORAN is Primary Nurse. ld1 18:08 Placed in gown. Bed in low position. Client placed on continuous cardiac and pulse tw2 oximetry monitoring. NIBP monitoring applied. monitor and storage bin tender on. Pulse ox on. NIBP on. pt back from CT at this time. 18:09 CT Head Brain wo Cont In Process Unspecified. EDMS 18:13 Triage completed. ww 18:14 Arm band placed on. ww 18:18 Inserted saline lock: 20 gauge in right antecubital area, using aseptic technique. mb7 Blood collected. 18:19 EKG done, by ED staff, reviewed by Ramón Parada MD. mb7 18:19 Basic Metabolic Panel Sent. mb7 18:19 CBC with Diff Sent. mb7 18:19 Protime (+inr) Sent. mb7 18:19 Ptt, Activated Sent. mb7 18:35 Stroke CXR 1 View In Process Unspecified. EDMS 19:13 Attending Physician role handed off by Ramón Parada MD 7 19:13 Eduardo Barreto MD is Attending Physician. 7 19:[address] via stretcher. ll3 19:29 CT Head Angio In Process Unspecified. EDMS 19:30 CT Neck Angio In Process Unspecified. EDMS 19:30 Patient taken to an exam room, via wheelchair. 3 21:11 initiated a transfer with Ekta Renteria from [facility] Transfer [place]. [facility] 21:38 administrative approval given by Ekta Renteria/ patient has been accepted to [address] [place] [address] bed 12/ Dr. Sam accepted the patient in transfer/report to be called to [phone]. 22:11 No provider procedures requiring assistance completed. Patient transferred, IV remains [address] Administered Medications: 18:28 Drug: Labetalol 5 mg Route: IV; Rate: calculated rate; Site: right antecubital; ld1 18:28 Follow up: Response: No adverse reaction 1 18:38 Drug: Labetalol 5 mg Route: IV; Rate: bolus; Site: right antecubital; ld1 18:43 Drug: TNK FOR STROKE - Tenecteplase 0.25 mg/kg {Co-Signature: tw2 (Laxmi Mathur ld1 RN).} Route: IV; Rate: per protocol; Site: right antecubital; 18:46 Drug: morphine 2 mg Route: IVP; Infused Over: 4 mins; Site: right antecubital; ld1 18:46 Drug: Zofran (Ondansetron) 4 mg Route: IVP; Site: right antecubital; ld1 21:10 Drug: Tylenol 1000 mg Route: PO; ll3 22:12 Follow up: Response: No adverse reaction; Marked relief of symptoms ll3 Medication: 18:20 VIS not applicable for this client. tw2 Point of Care Testing: Blood Glucose: 18:14 Blood Glucose: 92 mg/dL; ww Ranges: Outcome: 21:23 ER care complete, transfer ordered by . [facility] 22:11 Transferred by helicopter to [facility], Transfer form completed. ll3 X-rays sent w/ patient. 22:11 Condition: stable 22:11 Instructed on the need for transfer, Demonstrated understanding of instructions. 22:15 Patient left the ED. ll3 NIH Stroke Scale - NIH Stroke Score Date: 09/02/2021 Time: 18:14 Total Score = 1 1a. Level of Consciousness (LOC) - 0(Alert) 1b. Level of Consciousness (LOC) (Month \T\ Age) - 0(Both) 1c. LOC Commands (Open \T\ Closes Eyes/[employer] Research Specialist) - 0(Both) 2. Best Gaze (Lateral Gaze Paresis) - 0(Normal) 3. Visual Field Loss - 0(No visual loss) 4. Facial Palsy - 0(Normal) 5a. Left Arm: Motor (10-second hold) - 0(No drift) 5b. Right Arm: Motor (10-second hold) - 0(No drift) 6a. Left Leg: Motor (5-second hold - always test supine) - 0(No drift) 6b. Right Leg: Motor (5-second hold - always test supine) - 0(No drift) 7. Limb Ataxia (finger/nose \T\ heel/zeng - test with eyes open) - 0(Absent) 8. Sensory Loss (pinprick arms/legs/face) - 0(Normal) 9. Best Language: Aphasia (description/naming/reading) - 1(Mild to moderate aphasia) 10. Dysarthria (speech clarity - read or repeat words) - 0(Normal) 11. Extinction and Inattention (visual/tactile/auditory/spatial/personal) - 0(No abnormality) Initials: goran NIH Stroke Scale - NIH Stroke Score Date: 09/02/2021 Time: 18:20 Total Score = 1 1a. Level of Consciousness (LOC) - 0(Alert) 1b. Level of Consciousness (LOC) (Month \T\ Age) - 0(Both) 1c. LOC Commands (Open \T\ Closes Eyes/Market Research Specialist) - 0(Both) 2. Best Gaze (Lateral Gaze Paresis) - 0(Normal) 3. Visual Field Loss - 0(No visual loss) 4. Facial Palsy - 0(Normal) 5a. Left Arm: Motor (10-second hold) - 0(No drift) 5b. Right Arm: Motor (10-second hold) - 0(No drift) 6a. Left Leg: Motor (5-second hold - always test supine) - 0(No drift) 6b. Right Leg: Motor (5-second hold - always test supine) - 0(No drift) 7. Limb Ataxia (finger/nose \T\ heel/zeng - test with eyes open) - 0(Absent) 8. Sensory Loss (pinprick arms/legs/face) - 0(Normal) 9. Best Language: Aphasia (description/naming/reading) - 1(Mild to moderate aphasia) 10. Dysarthria (speech clarity - read or repeat words) - 0(Normal) 11. Extinction and Inattention (visual/tactile/auditory/spatial/personal) - 0(No abnormality) Initials: ld1 Signatures: Dispatcher [employer] EDMS Rosie Jansen Roman, MD MD rn Wise, Tara, RN RN tw2 Nettie Estevez 2 Eduardo Barreto MD MD 7 Lilly Barajas RN RN ld1 Mary Jane Garvin RN RN 3 Erika Crowe 7 Malena Garrett RN RN ww Laxmi Mathur RN tw2 Corrections: (The following items were deleted from the chart) 18:13 17:58 Chief complaint: ww ww 18:54 18:28 NIHSS Score: 0 ld1 ld1 21:30 21:11 initiated a transfer with Ritika Millard from [facility] Transfer [address] 21:43 21:11 initiated a transfer with Margaret Brito from [facility] Transfer [address]
--- NOTE | 2021-09-02 21:23 | EDPHYS ---
Physician Documentation [facility] Name: Steffanie Downs Age: 66 yrs Sex: Female : 1955 Arrival Date: 09/02/2021 Time: 17:53 Bed 19 Private MD: ED Physician Eduardo Barreto HPI: 09/02 18:03 This 66 yrs old Female presents to ER via Unassigned with complaints of S/S of Possible rn Stroke. 18:03 The patient's problem is reported as dysphasia, expressive aphasia. Onset: The rn symptoms/episode began/occurred 45 minute(s) ago. Duration: This was a single incident, The episode is continuous. The symptoms are alleviated by nothing. The symptoms are aggravated by nothing. Associated signs and symptoms: Pertinent positives: headache, Pertinent negatives: abdominal pain, ataxia, blurred vision, chest pain, seizure. Severity of symptoms: At their worst the symptoms were moderate in the emergency department the symptoms have improved. The patient has experienced a previous episode. The patient has not recently seen a physician. Pt and family report sudden onset headache and expressive aphasia, had difficulty pronouncing "aspirin", has had TIA in past, slowly improving but still not back to baseline. No chest pain/sob. No seizure. TIA presented similarly. . Historical: - Allergies: 18:18 No Known Allergies; tw2 - PMHx: 18:14 Multiple Sclerosis; Raynauds; Rheumatoid Arthritis; scleraderma; ww - PSHx: 18:14 Appendectomy; ww - Immunization history:: Adult Immunizations. - Social history:: Smoking status: . - Family history:: not pertinent. - Hospitalizations: : No recent hospitalization is reported. ROS: 18:13 Constitutional: Negative for fever, chills, and weight loss, Eyes: Negative for injury, rn pain, redness, and discharge, Cardiovascular: Negative for chest pain, palpitations, and edema, Respiratory: Negative for shortness of breath, cough, wheezing, and pleuritic chest pain, Abdomen/GI: Negative for abdominal pain, nausea, vomiting, diarrhea, and constipation, Back: Negative for injury and pain, MS/Extremity: Negative for injury and deformity, Skin: Negative for injury, rash, and discoloration, Neuro: Negative for weakness, numbness, tingling, and seizure. Exam: 19:40 Radiologist reports: No acute intracranial hemorrhage or infarction mh7 19:40 Constitutional: This is a well developed, well nourished patient who is awake, alert, mh7 and in no acute distress. Head/Face: Normocephalic, atraumatic. Eyes: Pupils equal round and reactive to light, extra-ocular motions intact. Lids and lashes normal. Conjunctiva and sclera are non-icteric and not injected. Cornea within normal limits. Periorbital areas with no swelling, redness, or edema. Neck: Trachea midline, no thyromegaly or masses palpated, and no cervical lymphadenopathy. Supple, full range of motion without nuchal rigidity, or vertebral point tenderness. No Meningismus. Chest/axilla: Normal chest wall appearance and motion. Nontender with no deformity. No lesions are appreciated. Cardiovascular: Regular rate and rhythm with a normal S1 and S2. No gallops, murmurs, or rubs. Normal PMI, no JVD. No pulse deficits. Respiratory: Lungs have equal breath sounds bilaterally, clear to auscultation and percussion. No rales, rhonchi or wheezes noted. No increased work of breathing, no retractions or nasal flaring. Abdomen/GI: Soft, non-tender, with normal bowel sounds. No distension or tympany. No guarding or rebound. No evidence of tenderness throughout. Back: No spinal tenderness. No costovertebral tenderness. Full range of motion. Skin: Warm, dry with normal turgor. Normal color with no rashes, no lesions, and no evidence of cellulitis. MS/ Extremity: Pulses equal, no cyanosis. Neurovascular intact. Full, normal range of motion. Neuro: Awake and alert, GCS 15, oriented to person, place, time, and situation. Cranial nerves II-XII grossly intact. Motor strength 5/5 in all extremities. Sensory grossly intact. Cerebellar exam normal. Normal gait. Psych: Awake, alert, with orientation to person, place and time. Behavior, mood, and affect are within normal limits. Vital Signs: 18:10 BP 182 / 112; Pulse 99; Resp 20; Temp 99.1; Pulse Ox 99% on R/A; ww 18:14 BP 193 / 116; Pulse 93; Resp 13; Pulse Ox 97% on R/A; ld1 18:24 BP 168 / 118; Pulse 85; Resp 16; Pulse Ox 97% on R/A; ld1 18:26 Weight 68.4 kg (M); Height 5 ft. 11 in. (180.34 cm) (R); ld1 18:34 BP 177 / 105; Pulse 84; Resp 18; Pulse Ox 97% on R/A; ld1 18:36 BP 170 / 106; rn 18:40 BP 170 / 107; Pulse 78; Resp 13; Pulse Ox 96% on R/A; ld1 18:48 BP 147 / 114; Pulse 76; Resp 14; Pulse Ox 96% on R/A; ld1 19:40 BP 172 / 92; Pulse 85; Resp 20; Pulse Ox 95% on R/A; ll3 20:52 BP 158 / 97; Pulse 83; Resp 18; Pulse Ox 97% on R/A; ll3 21:30 BP 153 / 92; Pulse 80; Resp 16; Pulse Ox 98% on R/A; ll3 18:26 Body Mass Index 21.03 (68.40 kg, 180.34 cm) ld1 NIH Stroke Scale Scores: 18:14 NIHSS Score: 1 rn 18:20 NIHSS Score: 1 ld1 MDM: 17:54 Patient medically screened. rn 18:24 ED course: CT head without acute findings per radiology, no bleeding. Consented patient rn and family regarding TNKase, understand risks and benefits and consent to treatment. BP is elevated, will have to give labetalol and reevaluate blood pressure. . 18:29 ED course: Consulted with Dr. Connors, agrees to TNK administration, once BP better rn controlled. Administering labetalol right now. . 19:02 Transition of care: After a detail discussion of the patient's case, care is rn transferred to Eduardo Barreto MD. ED course: Pt showing improvement, will keep close eye on BP, getting angios, then might need transfer to [facility] given no ICU beds here. . 21:19 Differential diagnosis: CVA, TIA, paralysis, metabolic disorder, drug effects. Data [facility] reviewed: vital signs, nurses notes, lab test result(s), CBC, electrolytes, EKG, radiologic studies, CT scan, plain films. Data interpreted: Pulse oximetry: on room air is 97 %. Interpretation: normal. Counseling: I had a detailed discussion with the patient and/or guardian regarding: the historical points, exam findings, and any diagnostic results supporting the discharge/admit diagnosis, the presence of at least one elevated blood pressure reading (>120/80) during this emergency department visit, lab results, radiology results, the need for further work-up and treatment in the hospital. Response to treatment: the patient's symptoms have markedly improved after treatment. 21:19 ED course: Patient and Family requested transfer to [facility]. [facility] 09/02 18:03 Order name: Basic Metabolic Panel; Complete Time: 18:43 09/02 18:03 Order name: CBC with Diff; Complete Time: 18:28 09/02 18:03 Order name: Protime (+inr); Complete Time: 18:36 09/02 18:03 Order name: Ptt, Activated; Complete Time: 18:36 09/02 18:10 Order name: Glucose, Ancillary Testing; Complete Time: 18:28 EDMS 09/02 19:15 Order name: COVID-19 SARS RT PCR (Document "Date of Onset" if Symptomatic); Complete [facility] Time: 21:32 09/02 18:03 Order name: CT Head Brain wo Cont; Complete Time: 18:28 09/02 18:03 Order name: CT Head Angio; Complete Time: 20:43 09/02 18:03 Order name: CT Neck Angio; Complete Time: 20:43 09/02 18:03 Order name: CT Stroke Brain w/o Contrast 09/02 18:03 Order name: Stroke CXR 1 View; Complete Time: 19:15 09/02 18:03 Order name: EKG; Complete Time: 18:05 09/02 18:03 Order name: Accucheck; Complete Time: 18:19 09/02 18:03 Order name: Cardiac monitoring; Complete Time: 18:19 rn 09/02 18:03 Order name: EKG - Nurse/Tech; Complete Time: 18:19 09/02 18:03 Order name: IV Saline Lock; Complete Time: 18:19 rn 09/02 18:03 Order name: Labs collected and sent; Complete Time: 18:19 09/02 18:03 Order name: NPO; Complete Time: 18:19 09/02 18:03 Order name: O2 Per Protocol; Complete Time: 18:19 rn 09/02 18:03 Order name: O2 Sat Monitoring; Complete Time: 18:19 rn 09/02 18:03 Order name: Stroke Swallow Screen; Complete Time: 18:28 rn Administered Medications: 18:28 Drug: Labetalol 5 mg Route: IV; Rate: calculated rate; Site: right antecubital; ld1 18:28 Follow up: Response: No adverse reaction ld1 18:38 Drug: Labetalol 5 mg Route: IV; Rate: bolus; Site: right antecubital; ld1 18:43 Drug: TNK FOR STROKE - Tenecteplase 0.25 mg/kg {Co-Signature: tw2 (Laxmi Mathur ld1 RN).} Route: IV; Rate: per protocol; Site: right antecubital; 18:46 Drug: morphine 2 mg Route: IVP; Infused Over: 4 mins; Site: right antecubital; ld1 18:46 Drug: Zofran (Ondansetron) 4 mg Route: IVP; Site: right antecubital; ld1 21:10 Drug: Tylenol 1000 mg Route: PO; ll3 22:12 Follow up: Response: No adverse reaction; Marked relief of symptoms ll3 Point of Care Testing: Blood Glucose: 18:14 Blood Glucose: 92 mg/dL; ww Ranges: Critical Glucose Levels:Adult <50 mg/dl or >400 mg/dl <40 mg/dl or >180 mg/dl Disposition Summary: 09/02/21 21:23 Transfer Ordered Transfer Location: [place] [id number] Reason: Higher level of care mh7 Condition: Stable mh7 Problem: new mh7 Symptoms: have improved mh7 Accepting Physician: Dr. Sam(09/02/21 22:15) ll3 Diagnosis - Cerebral infarction, unspecified mh7 Forms: - Medication Reconciliation Form mh7 - SBAR form 7 NIH Stroke Scale - NIH Stroke Score Date: 09/02/2021 Time: 18:14 Total Score = 1 1a. Level of Consciousness (LOC) - 0(Alert) 1b. Level of Consciousness (LOC) (Month \\T\\ Age) - 0(Both) 1c. LOC Commands (Open \\T\\ Closes Eyes/Athletic Turf Worker) - 0(Both) 2. Best Gaze (Lateral Gaze Paresis) - 0(Normal) 3. Visual Field Loss - 0(No visual loss) 4. Facial Palsy - 0(Normal) 5a. Left Arm: Motor (10-second hold) - 0(No drift) 5b. Right Arm: Motor (10-second hold) - 0(No drift) 6a. Left Leg: Motor (5-second hold - always test supine) - 0(No drift) 6b. Right Leg: Motor (5-second hold - always test supine) - 0(No drift) 7. Limb Ataxia (finger/nose \\T\\ heel/zeng - test with eyes open) - 0(Absent) 8. Sensory Loss (pinprick arms/legs/face) - 0(Normal) 9. Best Language: Aphasia (description/naming/reading) - 1(Mild to moderate aphasia) 10. Dysarthria (speech clarity - read or repeat words) - 0(Normal) 11. Extinction and Inattention (visual/tactile/auditory/spatial/personal) - 0(No abnormality) Initials: goran NIH Stroke Scale - NIH Stroke Score Date: 09/02/2021 Time: 18:20 Total Score = 1 1a. Level of Consciousness (LOC) - 0(Alert) 1b. Level of Consciousness (LOC) (Month \\T\\ Age) - 0(Both) 1c. LOC Commands (Open \\T\\ Closes Eyes/Athletic Turf Worker) - 0(Both) 2. Best Gaze (Lateral Gaze Paresis) - 0(Normal) 3. Visual Field Loss - 0(No visual loss) 4. Facial Palsy - 0(Normal) 5a. Left Arm: Motor (10-second hold) - 0(No drift) 5b. Right Arm: Motor (10-second hold) - 0(No drift) 6a. Left Leg: Motor (5-second hold - always test supine) - 0(No drift) 6b. Right Leg: Motor (5-second hold - always test supine) - 0(No drift) 7. Limb Ataxia (finger/nose \\T\\ heel/zeng - test with eyes open) - 0(Absent) 8. Sensory Loss (pinprick arms/legs/face) - 0(Normal) 9. Best Language: Aphasia (description/naming/reading) - 1(Mild to moderate aphasia) 10. Dysarthria (speech clarity - read or repeat words) - 0(Normal) 11. Extinction and Inattention (visual/tactile/auditory/spatial/personal) - 0(No abnormality) Initials: ld1 Signatures: Dispatcher [employer] EDRamón Centeno MD MD rn Wise, Tara, RN RN tw2 Eduardo Barreto MD MD 7 Lilly Barajas RN RN ld1 Mary Jane Garvin RN RN ll3 Malena Garrett RN RN Laxmi Mathur RN tw2 Corrections: (The following items were deleted from the chart) 22:15 21:23 Dr. Sam 7 3
[2021-09-02 22:53] VITALS: TEMP 99.1
[2021-09-02 23:07] VITALS: BP 153/92; O2SAT 98
--- NOTE | 2021-09-03 09:51 | EKG ---
Test Date: 2021-09-02 Test Time: 18:11:12 Pilot Plant Supervisor: MARTINA MEASUREMENT RESULTS: Intervals: Rate: 85 OK: 186 QRSD: 78 QT: 402 QTc: 478 [place]: P: 75 OK: 186 QRS: 81 T: 66 INTERPRETIVE STATEMENTS: Sinus rhythm with premature atrial complexes Otherwise normal ECG Compared to ECG 10/16/2016 07:41:48 Atrial premature complex(es) now present Electronically Signed On 09-03-21 09:49:44 CDT by Jm Silva
== END 2021-09-02 22:15 | disposition short-term general hospital (02) ==
LOC: ER 17:49
DX: I63.9 Cerebral infarction, unspecified (principal); R29.701 NIHSS score 1; Z20.822 Contact with and (suspected) exposure to COVID-19; G35 Multiple sclerosis
CPT/HCPCS: 92977; 93005; 85025; 80048; 36415; 85610; 82947; 85730; 70450; 70496; 70498; 71045; 96375; 96374; 99291; 99292; U0003; Q9967; J3101; J2270; J2405

== ENCOUNTER → 2023-03-13 | Day surgery (SDC) | payer OTHER ==
--- NOTE | 2023-03-13 11:08 | RAD REPORT ---
EXAM DESCRIPTION: Ultrasound-guided vacuum assisted left breast core biopsy CLINICAL HISTORY: Breast mass R92.8 COMPARISON: BREAST/AXILLA, COMPLETE dated 03/03/2023 FINDINGS: Informed consent was obtained and time-out was performed. The patient's left breast was prepped and draped in the usual sterile fashion. 1% lidocaine was used for local anesthetic purposes. Utilizing aseptic technique and ultrasound guidance, a 12 gauge vacuum assisted core biopsy device wa s used to obtain 1 core specimens through the mass of interest 12 o'clock position 1 cm lesion. A pos t biopsy clip was then placed. All collected material was sent for cytology. Patient tolerated procedure well. IMPRESSION: Successful ultrasound guided vacuum assisted left breast mass biopsy.
== END ==
LOC: DS 09:18
PROVIDERS: ATTEND Obstetrics & Gynecology
DX: N60.82 Other benign mammary dysplasias of left breast (principal); N60.32 Fibrosclerosis of left breast; N60.02 Solitary cyst of left breast
CPT/HCPCS: 19083; 88305

== ENCOUNTER 2023-04-15 10:02 | Inpatient (IN) | payer OTHER ==
[2023-04-15] MEDS ORDERED: NA CHLORIDE 0.9% 1,000 ML IV ONE ×3 (11:10→13:00)
[2023-04-15] MEDS ORDERED: NA CHLORIDE 0.9% 2,000 ML ONE (11:32)
[2023-04-15] MEDS ORDERED: FAMOTIDINE 20 MG/2 ML VIAL IV ONE ×2 (11:32→13:00)
[2023-04-15 11:46] LABS: Absolute Lymphocytes (CBC) 0.5 K/uL (0.7-4.9); Hematocrit 37.5 % (36.0-45.0); MCV 88.3 fL (80-100); MPV 6.3 fL (7.6-11.3); Platelets 323 thou/uL (152-406); RBC Red Blood Cell Count 4.25 M/uL (3.86-4.86)
[2023-04-15 12:00] LABS: Magnesium 1.8 mg/dL (1.6-2.4); Potassium 3.2 mEq/L (3.5-5.1)
[2023-04-15 12:10] LABS: Blood Morphology Comment NOT SEEN (NOT SEEN); Platelet Estimate ADEQ; White Blood Cell Scan OK (OK)
[2023-04-15 12:45] LABS: SARS-CoV-2 Antigen Rapid Res Negative (Negative)
[2023-04-15] MEDS: ONDANSETRON 4 MG/2 ML VIAL IV PRN (12:54)
[2023-04-15] MEDS ORDERED: NA CHLORIDE 0.9% 1,000 ML IV SCH (13:00)
[2023-04-15] MEDS: METHYLPREDNISOLONE 40 MG INJ IV SCH ×2 (13:02→15:59)
[2023-04-15] MEDS ORDERED: ACETAMINOPHEN 500 MG TAB PO PRN (13:10)
--- NOTE | 2023-04-15 13:17 | RAD REPORT ---
EXAM DESCRIPTION: RAD - Chest Single View - 04/15/2023 1:06 pm CLINICAL HISTORY: penumonia Chest pain. COMPARISON: <Comparisons> FINDINGS: Portable technique limits examination quality. Extensive bilateral pulmonary opacities are present probably representing pneumonia. The heart is upp er limit of normal in size. No displaced fractures.
[2023-04-15] MEDS ORDERED: ACETAMINOPHEN 500 MG TAB ONE (13:21)
--- NOTE | 2023-04-15 13:44 | RAD REPORT ---
EXAM DESCRIPTION: CT - Thorax Wo Con CLINICAL HISTORY: Chest pain r/o pneumonia COMPARISON: <Comparisons> FINDINGS: Moderate bilateral patchy airspace opacity is present, relatively diffuse, likely infectio n/pneumonia. Small bilateral pleural effusions. No pneumothorax. No axillary, mediastinal or hilar adenopathy. No concerning bony finding. No gross upper abdominal finding. All CT scans are performed using dose optimization technique as appropriate and may include automated exposure control or mA/KV adjustment according to patient size. IMPRESSION: Patchy moderately severe bilateral airspace opacities are present likely related to infe ction/pneumonia. A viral pneumonitis is a possibility.
--- NOTE | 2023-04-15 13:49 | ER ---
Nurse's Notes [facility] Name: Steffanie Downs Age: 68 yrs Sex: Female : 1955 Arrival Date: 04/15/2023 Time: 10:02 Bed Direct Admit Private MD: Donnie Arias Diagnosis: Dehydration;Nausea Presentation: 04/15 10:16 Chief complaint: Patient states: Direct admit Dr. Arias for nausea and dehydration. ll1 Coronavirus screen: Client denies travel out of the [place] in the last 14 days. At this time, the client does not indicate any symptoms associated with coronavirus-19. Ebola Screen: Patient denies travel to an Ebola-affected area in the 21 days before illness onset. Initial Sepsis Screen: Does the patient meet any 2 criteria? No. Patient's initial sepsis screen is negative. Does the patient have a suspected source of infection? No. Patient's initial sepsis screen is negative. Risk Assessment: Do you want to hurt yourself or someone else? Patient reports no desire to harm self or others. Onset of symptoms was March 26, 2023. 10:16 Method Of Arrival: Ambulatory ll1 10:16 Acuity: KRISTIE 3 ll1 Triage Assessment: 10:17 General: Appears uncomfortable, ill, Behavior is cooperative, appropriate for age. ll1 General: Reports feeling ill for dehydration. Pain: Pain currently is 3 out of 10 on a pain scale. Neuro: Reports weakness. GI: Reports nausea. Historical: - Allergies: 10:16 No Known Allergies; ll1 - PMHx: 10:16 Multiple Sclerosis; Raynauds; Rheumatoid Arthritis; scleraderma; ll1 - PSHx: 10:16 Appendectomy; ll1 - Immunization history:: Adult Immunizations up to date. - Social history:: Smoking status: Patient denies any tobacco usage or history of. Screenin:42 [facility] ED Fall Risk Assessment (Adult) History of falling in the last 3 months, cm10 including since admission No falls in past 3 months (0 pts) Confusion or Disorientation No (0 pts) Intoxicated or Sedated No (0 pts) Impaired Gait No (0 pts) Mobility Assist Device Used No (0 pt) Altered Elimination No (0 pt) Score/Fall Risk Level 0 - 2 = Low Risk Oriented to surroundings, Maintained a safe environment, Hourly rounding (assess needs \T\ fall precautionary measures) done. Abuse screen: Abuse screen: Denies threats or abuse. Denies injuries from another. Nutritional screening: No deficits noted. Tuberculosis screening: No symptoms or risk factors identified. Assessment: 13:43 GI: Abdomen is flat. cm10 Vital Signs: 10:16 BP 152 / 90; Pulse 101; Resp 18; Temp 98.6; Pulse Ox 94% on R/A; Weight 65.77 kg; ll1 Height 5 ft. 11 in. ; Pain 3/10; 13:00 BP 163 / 80; Pulse 93; Resp 18; Pulse Ox 93% on R/A; cm10 10:16 Body Mass Index 20.22 (65.77 kg, 180.34 cm) ll1 10:16 Pain Scale: Adult ll1 ED Course: 10:03 Patient arrived in ED. rg4 10:03 Donnie Arias MD is Private Physician. rg4 10:04 Ramón Parada MD is Attending Physician. rn 10:08 Donnie Arias MD is Hospitalizing Provider. ll1 10:15 Arm band placed on Patient placed in an exam room, on a stretcher. ll1 10:17 Triage completed. ll1 11:37 Inserted saline lock: 22 gauge in left antecubital area, using aseptic technique. Blood ds4 collected. 13:41 No provider procedures requiring assistance completed. Patient admitted, IV remains in cm10 place. 13:43 Patient has correct armband on for positive identification. Bed in low position. Call cm10 light in reach. Provided Education on: need for admit. 13:49 Donnie Arias MD is Attending Physician. ll1 Administered Medications: No medications were administered Medication: 13:43 VIS not applicable for this client. cm10 Outcome: 13:41 Admitted to Tele accompanied by tech, via wheelchair, room 406, Report called to cm10 LORE Rob 13:41 Condition: good 13:41 Instructed on the need for admit, 13:49 Decision to Hospitalize by Provider. ll1 13:49 Patient left the ED. ll1 Signatures: Ramón Parada MD MD rn Swanson, Donovan ds4 Nuzhat Villalpando rg4 Kenny Eaton RN RN 1 Katlyn Jansen RN RN 10
[2023-04-15] MEDS: NA CHLORIDE 0.9% 1,000 ML IV SCH ×3 (14:00→21:22)
[2023-04-15] MEDS ORDERED: ACETAMINOPHEN 500 MG TAB PO SCH (14:00)
[2023-04-15] MEDS: AMLODIPINE 5 MG TAB PO SCH ×2 (14:33→16:03)
--- NOTE | 2023-04-15 14:34 | P.CNS ---
Date of Consult: 04/15/23 Reason for Consult: Pneumonia Chief Complaint: SOB. nausea History of Present Illness: Pt is 68 yrs pf age dx with COVID during t with LAgevrio/ Did not improved. CW fever and nausea. CXRY sig bilateral ILD. Feeling very weak/ HH nurse gave IV fluids Allergies No Known Allergies Allergy (Unverified 10/16/16 09:31) Home Medications: Aspirin 81 mg PO DAILY 10/16/16 Calcium Carbonate/Vitamin D3 [Calcium 500 + Vit D Caplet] 1 each PO BID 10/16/16 Dimethyl Fumarate [Tecfidera] 240 mg PO BID 10/16/16 Diphenhydramine [Benadryl Tab/Cap] 25 mg PO BEDTIME PRN PRN 10/16/16 Hydroxychloroquine [Plaquenil] 200 mg PO DAILY 10/16/16 Multivitamin [Daily Multiple Vitamin] 1 each PO DAILY 10/16/16 Nifedipine [Nifedipine ER] 30 mg PO DAILY 10/16/16 Pantoprazole [Protonix Tab] 40 mg PO BID 10/16/16 - Past Medical/Surgical History -: Rheumatoid arthritisSclerodermaMultiple sclerosisstroke, CryptogenicRaynaud Past Surgical History: Patient denies surgical history - Social History Smoking Status: Never smoker Review of Systems General: Weakness Respiratory: Shortness of Breath Gastrointestinal: Nausea Physical Examination Temp Pulse Resp BP Pulse Ox 99.5 F 93 H 18 163/80 H 04/15/23 13:52 04/15/23 13:00 04/15/23 13:00 04/15/23 13:00 General: Alert, Moderate distress HEENT: Atraumatic Neck: Supple Respiratory: Clear to auscultation bilaterally Cardiovascular: No edema, Regular rate/rhythm, Normal S1 S2 Gastrointestinal: Normal bowel sounds, Soft and benign, Non-distended Musculoskeletal: No clubbing, No swelling, No contractures Laboratory Data (last 24 hrs) 04/15/23 04/15/23 11:32 11:32 WBC 7.40 Hgb 12.8 Hct 37.5 Plt Count 323 Sodium 136 Potassium 3.2 L BUN 16 Creatinine 0.67 Glucose 93 Magnesium 1.8 - Problems (1) Interstitial pneumonia of both lungs Current Visit: Yes Status: Acute Plan: PT age 68 AW diffuse ILD Recent COVID. LAbs reviewed/ CT Diffuse bialteral ILD/ Tx with steroids and Levaquin
[2023-04-15 15:10] VITALS: BMI 20.2
[2023-04-15] MEDS: Levofloxacin 750mg IV 750 MG/150 ML BAG IV SCH (15:58)
[2023-04-15] MEDS: ENOXAPARIN 40 MG/0.4 ML SQ SCH (18:09)
--- NOTE | 2023-04-15 19:36 | PN ---
Date of Progress Note: 04/15/2023 Patient was seen when she was started on the IV. She is with bolus. She seems much more alert. Wor kup included a CT scan which showed multiple areas of infiltrate. Of note, she had a peculiar sputum for C and S approximately 6 months ago which revealed a fungus and she states she has had multiple e pisodes of pneumonia confirmed on the x-ray over the past year including a few in [place]. At this stage, the possibility of being COVID is significant, although other viral etiologies can be in play. Electrolyte massey was good. She was placed on potassium protocol. Depending on the results of sign ificant steroid doses with Levaquin as ordered by her dinkey engine operator, Dr. Bustamante, dependent on her d isposition. HR/MODL Voice ID: [id number] Report ID: [id number]
[2023-04-16] MEDS: METHYLPREDNISOLONE 40 MG INJ IV SCH ×3 (00:45→17:12)
[2023-04-16 06:15] LABS: Absolute Lymphocytes (CBC) 0.5 K/uL (0.7-4.9); Hematocrit 36.2 % (36.0-45.0); Lymphocytes % 15.4 % (15.3-44.8); MCV 86.9 fL (80-100); MPV 6.2 fL (7.6-11.3); Platelets 347 thou/uL (152-406); RBC Red Blood Cell Count 4.17 M/uL (3.86-4.86)
[2023-04-16 06:36] LABS: Bilirubin Total 0.5 mg/dL (0.2-1.0); Potassium 3.4 mEq/L (3.5-5.1); Protein, Total 5.6 g/dL (6.4-8.2)
[2023-04-16] MEDS ORDERED: FUROSEMIDE 20 MG/ 2ML VIAL IV ONE (08:03)
[2023-04-16] MEDS: FAMOTIDINE 20 MG/2 ML VIAL IV SCH (08:44)
[2023-04-16] MEDS: ENOXAPARIN 40 MG/0.4 ML SQ SCH (08:44)
[2023-04-16] MEDS: AMLODIPINE 5 MG TAB PO SCH (08:44)
--- NOTE | 2023-04-16 12:47 | P.PN ---
Subjective Date of Service: 04/16/23 Chief Complaint: Coronavirus pneumonia Subjective: Improving (Patient is improving doing better nausea as she has improved) Review of Systems General: Weakness Respiratory: Shortness of Breath Gastrointestinal: Nausea Physical Examination - Vital Signs Temperature: 98.8 F Blood Pressure: 155/73 Pulse: 80 Respirations: 18 Pulse Ox (%): 94 - Physical Exam General: Alert, In no apparent distress, Oriented x3 Neck: Supple Respiratory: Clear to auscultation bilaterally Cardiovascular: No edema, Regular rate/rhythm, Normal S1 S2 Assessment And Plan - Current Problems (Diagnosis) (1) Interstitial pneumonia of both lungs Current Visit: Yes Status: Acute Plan: Patient is 68 years of age admitted with diffuse interstitial pneumonia most likely coronavirus continue with steroids nausea is improving patient has Zofran as needed continue with levofloxacin can DC IV fluids CT scan reviewed patient has mild hypokalemia
[2023-04-16] MEDS: Levofloxacin 750mg IV 750 MG/150 ML BAG IV SCH (14:19)
--- NOTE | 2023-04-16 15:09 | PN ---
Date of Progress Note: 04/16/2023 Patient feels a lot better today. She is on steroid doses significant, which has improved all her sy mptoms, although she is still quite weak and felt significant tachycardia with any exertion. We will defer do an EKG to make sure there is no myocarditis. Otherwise, we will increase her diet. Potass ium was almost normal and we will monitor her gradual steroid decrease. HR/MODL Voice ID: [id number] Report ID: [id number]
[2023-04-16] MEDS: ENSURE ENLIVE 237 ML CAN PO SCH (21:00)
[2023-04-16] MEDS: ESZOPICLONE 1 MG TAB PO PRN (21:09)
[2023-04-17] MEDS: METHYLPREDNISOLONE 40 MG INJ IV SCH ×2 (00:33→09:00)
[2023-04-17 05:35] LABS: Absolute Lymphocytes (CBC) 0.6 K/uL (0.7-4.9); Hematocrit 38.1 % (36.0-45.0); Lymphocytes % 6.9 % (15.3-44.8); MCV 89.4 fL (80-100); MPV 6.8 fL (7.6-11.3); Platelets 360 thou/uL (152-406); RBC Red Blood Cell Count 4.26 M/uL (3.86-4.86)
[2023-04-17 05:51] LABS: Albumin 2.2 g/dL (3.4-5.0); Bilirubin Total 0.5 mg/dL (0.2-1.0); Protein, Total 5.7 g/dL (6.4-8.2)
--- NOTE | 2023-04-17 08:20 | P.PN ---
Date of Service: 04/17/23 Subjective: Breathing more comfortably today; on 2L NC Does not wear oxygen at home some shortness of breath with exertion. improving slowly appetite and nausea improving afebrile ROS: 10 point ROS as noted above, otherwise negative Physical Exam: GEN: Alert, oriented, NAD HEENT: Normal conjunctiva, sclera anicteric CV: Regular rate and rhythm, no edema Pulm: Nonlabored respirations on 2L NC, diminished at bases b/l ABD: Soft, nontender, nondistended Neuro: Normal speech, normal affect vitals reviewed Problem List: Acute hypoxemic Respiratory failure secondary to bilateral interstitial pneumonia / Covid pneumonia asymptomatic Gram negative Bacteriuria Mild hypokalemia Multiple sclerosis Rheumatoid Arthritis hx of Raynauds hx of Scleraderma h/o COPD Acute hypoxemic Respiratory failure secondary to bilateral interstitial pneumonia / Covid pneumonia CXR (04/15): Extensive bilateral pulmonary opacities; probably pneumonia CT chest (04/15): Patchy moderately severe bilateral airspace opacities. Pneumonia vs viral Pneumonitis Patient reports recent covid positive ~2-3 weeks ago. +ongoing intermittent fever for last 2-[address] Robby park is following IV solu-medrol switched to PO prednisone (04/17) Continue empiric levaquin (04/15-) deescalated from IV to PO (04/17) Blood cx (04/15): NGTD Throat cx (04/15): 2+ yeast Sputum cx (04/15): GPC in prs/clusters on stain; culture pending Wean oxygen - does not use oxygen at home prior to hospitalization eval for home O2 hypoxia / new oxygen requirement is secondary to patient's covid pneumonia PT consult to start today asymptomatic Gram negative Bacteriuria asymptomatic urine cx (04/15): 2+ GNR, 10-100k CFUs no indication for antibiotic; however levaquin would cover most bacterial causes of UTI Mild hypokalemia Monitor electrolytes. Replete PRN Multiple sclerosis Rheumatoid Arthritis hx of Raynauds hx of Scleraderma continue home meds as appropriate Continue supportive care VTE: Lovenox Dispo: Home, ~2-3 days Pending breathing improves, culture results, oxygen weaned down vs home O2
[2023-04-17] MEDS: ENSURE ENLIVE 237 ML CAN PO SCH ×2 (09:00→21:00)
[2023-04-17] MEDS: AMLODIPINE 5 MG TAB PO SCH (09:36)
[2023-04-17] MEDS: ENOXAPARIN 40 MG/0.4 ML SQ SCH (09:36)
[2023-04-17] MEDS: FAMOTIDINE 20 MG/2 ML VIAL IV SCH (09:36)
--- NOTE | 2023-04-17 09:58 | P.PN ---
Subjective Date of Service: 04/17/23 Chief Complaint: Coronavirus pneumonia Subjective: Improving (Patient is doing much better eating and drinking on 2 L of nasal cannula oxygen) Review of Systems 10-point ROS is otherwise unremarkable General: Weakness Respiratory: Shortness of Breath Physical Examination - Vital Signs Temperature: 97.7 F Blood Pressure: 128/77 Pulse: 77 Respirations: 16 Pulse Ox (%): 93 - Physical Exam General: In no apparent distress Respiratory: Clear to auscultation bilaterally Cardiovascular: No edema, Regular rate/rhythm, Normal S1 S2 Assessment And Plan - Current Problems (Diagnosis) (1) Interstitial pneumonia of both lungs Current Visit: Yes Status: Acute Plan: Patient is doing much better plan to ambulate changed to p.o. prednisone p.o. antibiotic another dose of IV Lasix today eluate for home O2 discharge planning on Decadron milligrams once a day for a week levofloxacin 750 mg once a day for 5 days potassium supplementation Discharge Plan: Home Plan to discharge in: 24 Hours
[2023-04-17] MEDS: FAMOTIDINE 20 MG TAB PO SCH ×2 (10:00→21:03)
[2023-04-17] MEDS ORDERED: FUROSEMIDE 20 MG/ 2ML VIAL IV ONE (10:15)
[2023-04-17] MEDS: POTASSIUM 25 MEQ EFFERV TAB PO SCH (10:42)
--- NOTE | 2023-04-17 12:22 | RAD REPORT ---
EXAM DESCRIPTION: Trevor Single View04/17/2023 11:58 am CLINICAL HISTORY: Chest pain COMPARISON: April 15, 2023 FINDINGS: Minimal improvement in bilateral pulmonary opacities. Heart is normal size IMPRESSION: Minimal improvement in the bilateral pulmonary opacities probably pneumonia
[2023-04-17] MEDS: levoFLOXacin 750 MG TAB PO SCH (13:00)
[2023-04-17] MEDS ORDERED: POTASSIUM CL SA 10 MEQ TAB PO ONE (21:00)
[2023-04-17] MEDS: ESZOPICLONE 1 MG TAB PO PRN (21:03)
[2023-04-17] MEDS: predniSONE 20 MG TAB PO SCH (21:04)
[2023-04-18] MEDS: ACETAMINOPHEN 500 MG TAB PO PRN ×3 (05:51→21:37)
[2023-04-18 07:15] LABS: Potassium 3.7 mEq/L (3.5-5.1)
--- NOTE | 2023-04-18 08:37 | RAD REPORT ---
EXAM DESCRIPTION: RADChest Single View04/18/2023 5:13 am CLINICAL HISTORY: Pneumonia COMPARISON: Chest Single View dated 04/17/2023; Chest Single View dated 04/15/2023; Chest Pa And Lat ( 2 Views) dated 11/13/2022; Chest Pa And Lat (2 Views) dated 12/10/2021; Thorax Wo Con dated 04/15/2023 TECHNIQUE: Portable AP view of the chest. FINDINGS: The lungs show stable hazy and interstitial opacities most prominent in the left lower katarina g and right mid to lower lung. Implantable rhythm monitoring device in place. No pneumothorax or eff usion. The cardiomediastinal contours are unremarkable. IMPRESSION: Stable findings as above
[2023-04-18] MEDS: ENSURE ENLIVE 237 ML CAN PO SCH ×2 (09:00→20:42)
[2023-04-18] MEDS: POTASSIUM 25 MEQ EFFERV TAB PO SCH (09:00)
[2023-04-18] MEDS: FAMOTIDINE 20 MG TAB PO SCH ×2 (09:54→21:31)
[2023-04-18] MEDS: ENOXAPARIN 40 MG/0.4 ML SQ SCH (09:54)
[2023-04-18] MEDS: predniSONE 20 MG TAB PO SCH (09:55)
[2023-04-18] MEDS ORDERED: POTASSIUM CL SA 10 MEQ TAB PO ONE (10:00)
[2023-04-18] MEDS: AMLODIPINE 5 MG TAB PO SCH (10:00)
--- NOTE | 2023-04-18 10:34 | P.PN ---
Subjective Date of Service: 04/18/23 Chief Complaint: Coronavirus pneumonia Subjective: Improving (Patient is improving feeling weak no nausea vomiting tolerating a diet desaturation on mild exertion) Review of Systems 10-point ROS is otherwise unremarkable General: Weakness Respiratory: Shortness of Breath Physical Examination - Vital Signs Temperature: 98.4 F Blood Pressure: 122/73 Pulse: 76 Respirations: 16 Pulse Ox (%): 94 - Physical Exam General: Alert, In no apparent distress, Oriented x3 Respiratory: Clear to auscultation bilaterally Cardiovascular: No edema, Regular rate/rhythm Assessment And Plan - Current Problems (Diagnosis) (1) Interstitial pneumonia of both lungs Current Visit: Yes Status: Acute Plan: Admitted with virus pneumonia steadily improving room air sats around 88% of oxygen with exertion to incentive spirometry Lasix 20 mg IV daily acid changer to Decadron as from tomorrow go home on Decadron 4 milligrams daily for a week and then 2 mg a day urine culture shows E. coli and is sensitive to levofloxacin. Ambulate physical therapy discharge planning probably going to need home O2
--- NOTE | 2023-04-18 11:38 | P.PN ---
Date of Service: 04/18/23 Subjective: SPO2 sats ~92% on room air at rest yesterday. Desat to < 85% with ambulation per nursing note. subsequently placed on 1.5L NC and sats improved back to 91% after a few minutes at rest. remains on 1.5L NC currently feels slightly more sore in chest today, attributes this to being more active / ambulating yesterday afebrile, no other new /worsening symptoms ROS: 10 point ROS as noted above, otherwise negative Physical Exam: GEN: Alert, oriented, NAD HEENT: Normal conjunctiva, sclera anicteric; mild flushing of face CV: Regular rate and rhythm, no edema Pulm: Nonlabored respirations on 1.5L NC; no tachypnea at rest Neuro: Normal speech, normal affect vitals reviewed Problem List: Acute hypoxemic respiratory failure secondary to bilateral interstitial pneumonia / Covid pneumonia asymptomatic Gram negative Bacteriuria Mild hypokalemia Multiple sclerosis Rheumatoid Arthritis hx of Raynauds hx of Scleraderma h/o COPD Acute hypoxemic Respiratory failure secondary to bilateral interstitial pneumonia / Covid pneumonia h/o COPD CXR (04/15): Extensive bilateral pulmonary opacities; probably pneumonia CT chest (04/15): Patchy moderately severe bilateral airspace opacities. Pneumonia vs viral Pneumonitis Patient reports recent covid positive ~2-3 weeks ago. +ongoing intermittent fever for last 2-[address] Bustamante - pulm is following PO prednisone switched to decadron (04/18) likely to be discharged with decadron 4mg/day for 1 week, then 2mg/day per pulm Continue empiric levaquin (04/15-) deescalated from IV to PO (04/17) Blood cx (04/15): NGTD Throat cx (04/15): normal respiratory benita grown, 2+ yeast Sputum cx (04/15): normal respiratory benita grown Wean oxygen - does not use oxygen at home prior to hospitalization eval for home O2 - SPO2 sats ~92% on room air at rest yesterday afternoon. Desat to < 85% with ambulation per nursing note. Placed on 1.5L NC and sats improved back to 91% after a few minutes at rest. hypoxia / new oxygen requirement is secondary to patient's covid pneumonia PT consulted asymptomatic Gram negative Bacteriuria asymptomatic urine cx (04/15): E. coli - susceptible to levaquin no indication for antibiotic; however levaquin covers this E. coli Mild hypokalemia Monitor electrolytes. Replete PRN Multiple sclerosis Rheumatoid Arthritis hx of Raynauds hx of Scleraderma continue home meds as appropriate Continue supportive care VTE: Lovenox Dispo: Home, ~2-3 days Pending oxygen weaned down vs home O2
[2023-04-18] MEDS: FUROSEMIDE 20 MG/ 2ML VIAL IV SCH (12:40)
[2023-04-18] MEDS: levoFLOXacin 750 MG TAB PO SCH (12:40)
[2023-04-18] MEDS: DULERA 200/5 (MOMETASONE/FORMOTEROL) INHALER IH SCH (21:00)
[2023-04-18] MEDS: ESZOPICLONE 1 MG TAB PO PRN (21:31)
[2023-04-19] MEDS: ACETAMINOPHEN 500 MG TAB PO PRN (04:34)
[2023-04-19 06:57] LABS: Absolute Lymphocytes (CBC) 0.3 K/uL (0.7-4.9); Hematocrit 35.4 % (36.0-45.0); Lymphocytes % 3.9 % (15.3-44.8); MCV 88.1 fL (80-100); MPV 6.5 fL (7.6-11.3); Platelets 304 thou/uL (152-406); RBC Red Blood Cell Count 4.02 M/uL (3.86-4.86)
[2023-04-19 07:17] LABS: Albumin 2.1 g/dL (3.4-5.0); Bilirubin Total 0.6 mg/dL (0.2-1.0); C-Reactive Protein 68.7 mg/L (<3.00); Magnesium 1.9 mg/dL (1.6-2.4); Potassium 3.4 mEq/L (3.5-5.1); Protein, Total 5.6 g/dL (6.4-8.2)
--- NOTE | 2023-04-19 07:41 | RAD REPORT ---
EXAM DESCRIPTION: RAD - Chest Single View - 04/19/2023 6:45 am CLINICAL HISTORY: f/u opacities, +fever COMPARISON: Chest Single View dated 04/18/2023; Chest Single View dated 04/17/2023; Chest Single View dated 04/15/2023; Chest Pa And Lat (2 Views) dated 11/13/2022; Thorax Wo Con dated 04/15/2023 FINDINGS: Lines: None. Lungs: Patchy irregular bilateral airspace disease without significant change compared with 4. Pleural: No significant pleural effusions or pneumothorax. Cardiac: The heart size is within normal limits. Mediastinum: Within normal limits. Bones: No acute fractures. Other: Loop recorder overlies the heart . IMPRESSION: Unchanged patchy and irregular bilateral airspace disease which remains concerning for p neumonia.
[2023-04-19 07:47] LABS: Blood Morphology Comment NOT SEEN (NOT SEEN); Platelet Estimate ADEQ; White Blood Cell Scan OK (OK)
--- NOTE | 2023-04-19 07:59 | P.PN ---
Date of Service: 04/19/23 Subjective: Doesn't feel much improvement in breathing but doesn't feel worse febrile overnight 101.4 asymptomatic. denies sore throat remains on oxygen ROS: 10 point ROS as noted above, otherwise negative Physical Exam: GEN: Alert, oriented, NAD HEENT: Normal conjunctiva, sclera anicteric; mild flushing of face CV: Regular rate and rhythm, no edema Pulm: Nonlabored respirations on 1.5L NC; no tachypnea at rest Neuro: Normal speech, normal affect vitals reviewed Problem List: Acute hypoxemic respiratory failure secondary to bilateral interstitial pneumonia / Covid pneumonia asymptomatic Gram negative Bacteriuria Mild hypokalemia Multiple sclerosis Rheumatoid Arthritis hx of Raynauds hx of Scleraderma h/o COPD Acute hypoxemic Respiratory failure secondary to bilateral interstitial pne umonia / Covid pneumonia h/o COPD CXR (04/15): Extensive bilateral pulmonary opacities; probably pneumonia CT chest (04/15): Patchy moderately severe bilateral airspace opacities. Pneumon ia vs viral Pneumonitis CXR (04/19): unchanged patchy/irregular b/l airspace disease Patient reports recent covid positive ~2-3 weeks ago. +ongoing intermittent fever for last 2-[address] Robby park is following Febrile overnight / today (04/19) asymptomatic. denies sore throat. Doesn't feel any worse CRP elevated, procal normal, no leukocytosis concern for bacterial superinfection 04/19 switch PO decadron to IV (04/19) switch levaquin to IV cefepime / vancomycin (04/19-) given new fever; previously on IV levaquin (04/15-04/17), PO levaquin (04/17-04/19) CTA chest (04/19): ordered f/u opacities, r/o PE CT abd/pelvis (04/19): ordered eval source infxn, ?UTI repeat urine culture Blood cx (04/15): NGTD Throat cx (04/15): normal respiratory benita grown, 2+ yeast Sputum cx (04/15): normal respiratory benita grown Wean oxygen - does not use oxygen at home prior to hospitalization eval for home O2 - SPO2 sats ~92% on room air at rest (04/17). Desat to < 85% with ambulation per nursing note. Placed on 1.5L NC and sats improved back to 91% after a few minutes at rest. hypoxia / new oxygen requirement is secondary to patient's covid pneumonia PT consulted asymptomatic Gram negative Bacteriuria asymptomatic urine cx (04/15): E. coli - susceptible to levaquin no indication for antibiotic; however levaquin covers this E. coli repeat urine cx Mild hypokalemia Monitor electrolytes. Replete PRN Multiple sclerosis Rheumatoid Arthritis hx of Raynauds hx of Scleraderma continue home meds as appropriate Continue supportive care VTE: Lovenox Dispo: Home, ~2-3 days Pending oxygen weaned down vs home O2, afebrile > 24 hours
[2023-04-19] MEDS: DULERA 200/5 (MOMETASONE/FORMOTEROL) INHALER IH SCH ×2 (09:00→19:49)
[2023-04-19] MEDS ORDERED: VANCOMYCIN 1.75 GM in NA CHLORIDE 0.9% 500 ML IVPB ONE (09:00)
[2023-04-19] MEDS ORDERED: dexAMETHasone 4 MG TAB PO SCH (09:00)
[2023-04-19] MEDS: FUROSEMIDE 20 MG/ 2ML VIAL IV SCH (09:07)
[2023-04-19] MEDS: dexAMETHasone 10 MG/ML VIAL IV SCH (09:07)
[2023-04-19] MEDS: CEFEPIME 1 GM in NA CHLORIDE 0.9% 100 ML IV SCH ×2 (09:08→19:54)
[2023-04-19] MEDS: POTASSIUM CL SA 10 MEQ TAB PO SCH ×2 (09:10→19:50)
[2023-04-19] MEDS: AMLODIPINE 5 MG TAB PO SCH (09:11)
[2023-04-19] MEDS: FAMOTIDINE 20 MG TAB PO SCH ×2 (09:11→19:50)
[2023-04-19] MEDS: ENOXAPARIN 40 MG/0.4 ML SQ SCH (09:12)
[2023-04-19] MEDS: ENSURE ENLIVE 237 ML CAN PO SCH ×2 (09:52→19:52)
--- NOTE | 2023-04-19 10:56 | RAD REPORT ---
EXAM DESCRIPTION: CT - Chest For Pe Angio - 04/19/2023 10:16 am CLINICAL HISTORY: r/o PE, eval opacities COMPARISON: Thorax Wo Con dated 04/15/2023; Thorax W/ Con dated 01/01/2022; Chest For Pe Angio dated TECHNIQUE: Dynamically enhanced axial 3 mm thick images of the chest were obtained during administra tion of <100> mL Isovue 370 IV contrast. Coronal and oblique reconstruction images were generated and reviewed. Exam utilizes a protocol for optimal evaluation of pulmonary arterial tree. Maximum intensity projections 3D imaging was utilized All CT scans are performed using dose optimization technique as appropriate and may include automated exposure control or mA/KV adjustment according to patient size. FINDINGS: Chest Wall: No suspicious thyroid nodules or pathologic lymphadenopathy. Lungs: Patchy bilateral areas of ground-glass and nodular airspace disease throughout all lobes. Airs pace disease is similar to prior. There are increased areas of nodularity. Pleura: Small left trace right pleural effusions. Mediastinum/kai: No pathologic lymphadenopathy. Pulmonary arteries/Aorta: No filling defect identified. No aortic aneurysm. Heart: No significant pericardial effusion. Normal heart size. Upper abdomen: No acute abnormality. Bones: No acute abnormality. Multilevel degenerative changes are present in the spine. IMPRESSION: Negative for pulmonary embolism. Moderate bilateral airspace disease with increased nodu larity compared with prior. This could reflect either worsening or evolution of suspected pneumonia. Small effusions.
--- NOTE | 2023-04-19 11:03 | RAD REPORT ---
EXAM DESCRIPTION: CTAbdomen Pelvis W Contrast - 04/19/2023 10:15 am CLINICAL HISTORY: eval source infxn, ?UTI COMPARISON: Abdomen Pelvis W Contrast dated 10/03/2016 TECHNIQUE: CT of the abdomen and pelvis was performed. All CT scans are performed using dose optimization technique as appropriate and may include automated exposure control or mA/KV adjustment according to patient size. FINDINGS: Lower chest: See same day chest CT. Liver: No acute abnormality or suspicious lesions. Biliary: No biliary ductal dilatation. Stomach: No significant focal abnormality. Duodenum: No significant focal abnormality. Pancreas: No significant abnormality. Spleen: No significant abnormality. Adrenal: No suspicious lesions. Kidney/ureter: No hydronephrosis. No renal calculi. Retroperitoneum: No retroperitoneal adenopathy. Vascular: No aneurysm. Bowel: Fluid present throughout the small bowel and proximal colon. Mild enhancement at the terminal ileum. Peritoneum: Small volume of pelvic free fluid. Bladder: Grossly unremarkable. Reproductive: No adnexal masses. Bones: No acute fracture. Multilevel degenerative changes are present in the spine. Other: n/a IMPRESSION: Scattered small bowel and colonic fluid could reflect a mild enterocolitis. No bowel obs truction. Nonspecific pelvic free fluid.
--- NOTE | 2023-04-19 12:25 | P.PN ---
Subjective Date of Service: 04/19/23 Chief Complaint: Coronavirus pneumonia Patient is feeling weak developed some fever some respiratory symptoms chest soreness Review of Systems General: Fever, Weakness Respiratory: Cough, Shortness of Breath Physical Examination - Vital Signs Temperature: 100.1 F Blood Pressure: 123/76 Pulse: 94 Respirations: 18 Pulse Ox (%): 95 - Physical Exam General: Alert, Oriented x3, Mild distress Respiratory: Clear to auscultation bilaterally Cardiovascular: No edema, Regular rate/rhythm, Normal S1 S2 Assessment And Plan - Current Problems (Diagnosis) (1) Interstitial pneumonia of both lungs Current Visit: Yes Status: Acute Plan: Patient developed some fever last night feeling weak complaining of chest soreness cough congestion shortness of breath with desat on exertion the scan shows bilateral groundglass changes no evidence of any superimposed consolidation of the abdomen is nonspecific no evidence of any abscess there is no pulmonary embolism either chemistries reviewed white count is normal procalcitonin level negative will broaden her antibiotics to cefepime vancomycin she is at risk for superimposed infection continue with Decadron chest CT reviewed
[2023-04-19] MEDS: VANCOMYCIN 1 GM in NA CHLORIDE 0.9% 250 ML IV SCH (20:52)
[2023-04-20 05:34] LABS: Absolute Lymphocytes (CBC) 0.5 K/uL (0.7-4.9); Hematocrit 35.5 % (36.0-45.0); Lymphocytes % 6.1 % (15.3-44.8); MCV 86.2 fL (80-100); MPV 6.6 fL (7.6-11.3); Platelets 299 thou/uL (152-406); RBC Red Blood Cell Count 4.12 M/uL (3.86-4.86)
[2023-04-20 05:56] LABS: C-Reactive Protein 96.4 mg/L (<3.00); Magnesium 2.1 mg/dL (1.6-2.4); Potassium 3.7 mEq/L (3.5-5.1)
[2023-04-20] MEDS: FAMOTIDINE 20 MG TAB PO SCH ×2 (08:48→21:19)
[2023-04-20] MEDS: POTASSIUM CL SA 10 MEQ TAB PO SCH ×2 (08:48→21:19)
[2023-04-20] MEDS: ENOXAPARIN 40 MG/0.4 ML SQ SCH (08:48)
[2023-04-20] MEDS: CEFEPIME 1 GM in NA CHLORIDE 0.9% 100 ML IV SCH ×2 (08:49→21:19)
[2023-04-20] MEDS: dexAMETHasone 10 MG/ML VIAL IV SCH (08:49)
[2023-04-20] MEDS: AMLODIPINE 5 MG TAB PO SCH (08:49)
[2023-04-20] MEDS: FUROSEMIDE 20 MG/ 2ML VIAL IV SCH (08:49)
[2023-04-20] MEDS: DULERA 200/5 (MOMETASONE/FORMOTEROL) INHALER IH SCH ×2 (08:50→21:00)
[2023-04-20] MEDS: ENSURE ENLIVE 237 ML CAN PO SCH ×2 (09:02→21:00)
[2023-04-20] MEDS: VANCOMYCIN 1 GM in NA CHLORIDE 0.9% 250 ML IV SCH ×2 (09:24→21:59)
[2023-04-20] MEDS: DOCUSATE NA/SENNA CONC 1 TAB PO SCH (09:49)
--- NOTE | 2023-04-20 12:28 | P.PN ---
Subjective Date of Service: 04/20/23 Chief Complaint: Coronavirus pneumonia Patient is doing better less nauseated tolerating diet no more fever still feeling weak Review of Systems General: Weakness Respiratory: Shortness of Breath Physical Examination - Vital Signs Temperature: 98.0 F Blood Pressure: 118/69 Pulse: 80 Respirations: 16 Pulse Ox (%): 91 - Physical Exam General: Alert, Oriented x3 Respiratory: Crackles/rales Cardiovascular: No edema, Normal S1 S2 Assessment And Plan - Current Problems (Diagnosis) (1) Interstitial pneumonia of both lungs Current Visit: Yes Status: Acute Plan: Patient is doing better no fever for the past 24 hours is on cefepime and vancomycin I suspect that she has a superinfection labs reviewed white count is normal. Blood cultures are negative continue with IV antibiotics will need physical therapy complaining of constipation add a laxative labs reviewed physical therapy ambulate need home O2
--- NOTE | 2023-04-20 17:08 | EKG ---
Test Date: 2023-04-16 Test Time: 13:17:22 [employer]: DANIS MEASUREMENT RESULTS: Intervals: Rate: 96 TN: 178 QRSD: 82 QT: 400 QTc: 505 [place]: P: 55 TN: 178 QRS: 65 T: 67 INTERPRETIVE STATEMENTS: Normal sinus rhythm Prolonged QT Abnormal ECG Compared to ECG 09/02/2021 18:11:12 Prolonged QT interval now present Atrial premature complex(es) no longer present Electronically Signed On 04-20-23 16:56:23 DENTAL ASSISTANT TEACHER by Moustapha Escoto
[2023-04-20] MEDS: MELATONIN 5 MG TABLET PO PRN (21:19)
[2023-04-21 04:38] LABS: Absolute Lymphocytes (CBC) 0.4 K/uL (0.7-4.9); Hematocrit 33.2 % (36.0-45.0); Lymphocytes % 4.7 % (15.3-44.8); MCV 86.5 fL (80-100); MPV 6.4 fL (7.6-11.3); Platelets 324 thou/uL (152-406); RBC Red Blood Cell Count 3.84 M/uL (3.86-4.86)
--- NOTE | 2023-04-21 07:43 | RAD REPORT ---
EXAM DESCRIPTION: RAD - Chest Single View - 04/21/2023 5:26 am CLINICAL HISTORY: PNA COMPARISON: Chest Single View dated 04/19/2023; Chest Single View dated 04/18/2023; Chest Single View dated 04/17/2023; Chest Single View dated 04/15/2023 FINDINGS: Lines: None. Lungs: Coarsened interstitium with patchy areas of bilateral airspace opacities similar to 04/19/2023 . Pleural: No significant pleural effusions or pneumothorax. Cardiac: Mild cardiomegaly. Loop recorder . Mediastinum: Within normal limits. Bones: No acute fractures. Other: None IMPRESSION: Decreased lung volumes with similar bilateral ill-defined airspace disease likely reflec ting sequela of recent pneumonia.
--- NOTE | 2023-04-21 07:44 | RAD REPORT ---
EXAM DESCRIPTION: RAD - Abdomen 1 View (KUB) - 04/21/2023 5:26 am CLINICAL HISTORY: Constipation COMPARISON: Abdomen Pelvis W Contrast dated 04/19/2023 FINDINGS: Nonobstructive bowel gas pattern. No acute osseous abnormality.Visualized lungs are unrema rkable.No abnormal calcifications. Moderate semi formed stool noted. Surgical clip in the right lower quadrant . IMPRESSION: Nonobstructive bowel gas pattern. Moderate semiformed stool..
[2023-04-21] MEDS: POTASSIUM CL SA 10 MEQ TAB PO SCH ×2 (08:04→20:59)
[2023-04-21] MEDS: ENOXAPARIN 40 MG/0.4 ML SQ SCH (08:04)
[2023-04-21] MEDS: DOCUSATE NA/SENNA CONC 1 TAB PO SCH (08:04)
[2023-04-21] MEDS: FAMOTIDINE 20 MG TAB PO SCH ×2 (08:05→20:59)
[2023-04-21] MEDS: ACETAMINOPHEN 500 MG TAB PO PRN (08:05)
[2023-04-21] MEDS: AMLODIPINE 5 MG TAB PO SCH (08:06)
[2023-04-21] MEDS: FUROSEMIDE 20 MG/ 2ML VIAL IV SCH (08:06)
[2023-04-21] MEDS: dexAMETHasone 10 MG/ML VIAL IV SCH (08:06)
[2023-04-21] MEDS: CEFEPIME 1 GM in NA CHLORIDE 0.9% 100 ML IV SCH ×2 (08:07→20:59)
[2023-04-21] MEDS: DULERA 200/5 (MOMETASONE/FORMOTEROL) INHALER IH SCH ×2 (08:08→21:00)
[2023-04-21] MEDS: ENSURE ENLIVE 237 ML CAN PO SCH ×2 (09:00→20:59)
[2023-04-21] MEDS: VANCOMYCIN 1 GM in NA CHLORIDE 0.9% 250 ML IV SCH ×2 (09:23→21:26)
[2023-04-21] MEDS: MELATONIN 5 MG TABLET PO PRN (20:59)
--- NOTE | 2023-04-21 21:15 | PN ---
Date of Progress Note: 04/20/2023 The patient seems to be slightly improved today, tolerating her PT somewhat better, required less oxy gen supply. Her appetite has improved somewhat. Main complaint now is extreme fatigue, especially w ith any exertion. She has decreased her steroid requirement. Repeat CT scan basically confirmed the prior diagnosis of a viral pneumonitis, including the most likely possibility of COVID. We will con tinue with the present regimen. I have discussed with her family her disposition. HR/MODL Voice ID: [id number] Report ID: [id number]
--- NOTE | 2023-04-21 21:24 | PN ---
The patient continues to improve, is more alert, has increased her walking capabilities. Has had a b owel movement, which she says was extensive and first one she has had since she had been in the [facility]. Arrangements are being made with Home Health, and oxygen requirement in discussion with the tami sanders in regard to returning with her daughter to [facility] was also discussed. Repeat chest x-ray basically showing stability. Lab work showed the stool retention. We will continue on p resent regimen with possibility of discharge in 48 to 72 hours. HR/MODL Voice ID: [id number] Report ID: [id number]
[2023-04-22] MEDS: DOCUSATE NA/SENNA CONC 1 TAB PO SCH ×2 (08:20→08:23)
[2023-04-22] MEDS: ENOXAPARIN 40 MG/0.4 ML SQ SCH (08:20)
[2023-04-22] MEDS: POTASSIUM CL SA 10 MEQ TAB PO SCH ×2 (08:21→21:13)
[2023-04-22] MEDS: FAMOTIDINE 20 MG TAB PO SCH ×2 (08:21→21:14)
[2023-04-22] MEDS: DOXYCYCLINE 100 MG CAP PO SCH ×2 (08:22→21:14)
[2023-04-22] MEDS: ENSURE ENLIVE 237 ML CAN PO SCH ×2 (08:22→21:00)
[2023-04-22] MEDS: AMLODIPINE 5 MG TAB PO SCH (08:23)
[2023-04-22] MEDS: DULERA 200/5 (MOMETASONE/FORMOTEROL) INHALER IH SCH ×2 (08:24→21:00)
[2023-04-22] MEDS ORDERED: dexAMETHasone 4 MG/ML VIAL IV SCH (09:00)
[2023-04-22] MEDS: ACETAMINOPHEN 500 MG TAB PO PRN (09:26)
--- NOTE | 2023-04-22 11:59 | P.PN ---
Subjective Date of Service: 04/22/23 Chief Complaint: Fever Patient's condition is gradually improving she still feels very weak and has not fever persists started on vancomycin and cefepime and still continues to have persistent fever we will change her over to levofloxacin and doxycycline most likely an atypical infection in addition patient had Moraxella catarrhalis isolated levofloxacin is sensitive to Review of Systems General: Weakness Respiratory: Shortness of Breath Physical Examination - Vital Signs Temperature: 99.4 F Blood Pressure: 100/57 Pulse: 98 Respirations: 16 Pulse Ox (%): 91 - Physical Exam General: Alert, In no apparent distress, Oriented x3 Respiratory: Clear to auscultation bilaterally Cardiovascular: No edema, Regular rate/rhythm, Normal S1 S2 Assessment And Plan - Current Problems (Diagnosis) (1) Interstitial pneumonia of both lungs Current Visit: Yes Status: Acute Plan: Patient admitted with interstitial pneumonia most likely secondary to coronavirus however she continues to have a persistent fever despite broad- spectrum antibiotics her white count is normal chest x-ray does show an improvement scan of the chest and abdomen did not show any obvious changes we will change her over to p.o. levofloxacin and doxycycline await for possible discharge once she is afebrile for 24 hours also DC Decadron for now patient has had Moraxella catarrhalis isolated before Discharge Plan: Home Plan to discharge in: 24 Hours
[2023-04-22 14:28] LABS: Specific Gravity 1.017 (1.005-1.030); Urine Bacteria None Seen /HPF (<20); Urine Bilirubin NEGATIVE (Negative); Urine Blood Negative (Negative); Urine Clarity Clear (Clear); Urine Color Light-Yellow (Yellow); Urine Crystals Unidentified Few /HPF (None Seen); Urine Glucose NEGATIVE (Negative); Urine Mucus Slight /HPF (None Seen); Urine Protein TRACE (Negative); Urine RBC <5 /HPF (None Seen); Urine Urobilinogen Normal (Normal); Urine WBC Clump Rare /HPF (None Seen); Urine pH 6.5 (5.0-7.0)
[2023-04-22] MEDS: IPRATROPIUM BROM 0.5MG/2.5ML NEB SCH (20:00)
[2023-04-22] MEDS: ALBUTEROL 2.5 MG/3 ML NEB SOL NEB SCH (20:00)
[2023-04-23] MEDS: ALBUTEROL 2.5 MG/3 ML NEB SOL NEB SCH ×5 (02:00→20:54)
[2023-04-23] MEDS: IPRATROPIUM BROM 0.5MG/2.5ML NEB SCH ×4 (02:00→20:55)
[2023-04-23 05:28] LABS: Absolute Lymphocytes (CBC) 0.3 K/uL (0.7-4.9); Hematocrit 31.7 % (36.0-45.0); MCV 86.7 fL (80-100); MPV 6.6 fL (7.6-11.3); Platelets 332 thou/uL (152-406); RBC Red Blood Cell Count 3.66 M/uL (3.86-4.86)
[2023-04-23 05:42] LABS: Bilirubin Total 0.5 mg/dL (0.2-1.0); Protein, Total 5.3 g/dL (6.4-8.2)
--- NOTE | 2023-04-23 07:30 | RAD REPORT ---
EXAM DESCRIPTION: RADChest Single View04/23/2023 4:27 am CLINICAL HISTORY: pneumonia COMPARISON: Abdomen 1 View (KUB) dated 04/21/2023; Chest Single View dated 04/21/2023; Chest Single Vi ew dated 04/19/2023; Chest Single View dated 04/18/2023; Chest For Pe Angio dated 04/19/2023 TECHNIQUE: Portable AP view of the chest. FINDINGS: Stable hazy airspace opacities more pronounced in the periphery the right lung. Background interstitial thickening, may reflect chronic fibrotic/interstitial changes. No pneumothorax or effu deny. The cardiomediastinal contours are unremarkable. IMPRESSION: Stable airspace opacities as above, concerning for pneumonia. Implantable rhythm monitor ing device in place.
[2023-04-23 08:44] LABS: White Blood Cell Scan OK (OK)
[2023-04-23 08:45] LABS: Blood Morphology Comment NOT SEEN (NOT SEEN); Platelet Estimate ADEQ
[2023-04-23] MEDS: DULERA 200/5 (MOMETASONE/FORMOTEROL) INHALER IH SCH ×2 (09:57→21:00)
[2023-04-23] MEDS: ENSURE ENLIVE 237 ML CAN PO SCH ×2 (09:58→21:00)
[2023-04-23] MEDS: levoFLOXacin 750 MG TAB PO SCH (10:00)
[2023-04-23] MEDS: POTASSIUM CL SA 10 MEQ TAB PO SCH ×2 (10:00→21:01)
[2023-04-23] MEDS: FAMOTIDINE 20 MG TAB PO SCH ×2 (10:00→21:01)
[2023-04-23] MEDS: DOXYCYCLINE 100 MG CAP PO SCH ×2 (10:01→21:01)
[2023-04-23] MEDS: AMLODIPINE 5 MG TAB PO SCH (10:01)
[2023-04-23] MEDS: ENOXAPARIN 40 MG/0.4 ML SQ SCH (10:02)
--- NOTE | 2023-04-23 14:24 | PN ---
Date of Progress Note: 04/23/2023 The patient states she feels somewhat better today. She has still nonproductive cough and quite weak . Low grade temp. Antibiotics have been changed for treatment of an atypical pneumonia as well as U TI, which cultured out E coli. The patient continues with PT. Steroids have been stopped. We will continue to monitor. Repeat a chest x-ray and blood count. HR/MODL Voice ID: [id number] Report ID: [id number]
[2023-04-23] MEDS: ACETAMINOPHEN 500 MG TAB PO PRN (17:30)
[2023-04-23] MEDS: ONDANSETRON 4 MG/2 ML VIAL IV PRN ×2 (17:31→21:01)
[2023-04-24] MEDS: ALBUTEROL 2.5 MG/3 ML NEB SOL NEB SCH ×2 (01:00→07:00)
[2023-04-24] MEDS: IPRATROPIUM BROM 0.5MG/2.5ML NEB SCH ×2 (01:40→08:01)
[2023-04-24] MEDS: ACETAMINOPHEN 500 MG TAB PO PRN ×2 (04:29→10:28)
[2023-04-24 05:33] LABS: Absolute Lymphocytes (CBC) 0.4 K/uL (0.7-4.9); Hematocrit 32.3 % (36.0-45.0); Lymphocytes % 6.1 % (15.3-44.8); Platelets 332 thou/uL (152-406); RBC Red Blood Cell Count 3.75 M/uL (3.86-4.86)
[2023-04-24 05:48] LABS: Albumin 2.1 g/dL (3.4-5.0); Bilirubin Total 0.7 mg/dL (0.2-1.0); Potassium 4.1 mEq/L (3.5-5.1); Protein, Total 5.6 g/dL (6.4-8.2)
--- NOTE | 2023-04-24 07:48 | P.DS ---
Admission Date: 04/15/23 Discharge Date: 04/26/23 Disposition: ROUTINE DISCHARGE Discharge Condition: GOOD Reason for Admission: Fever Brief History of Present Illness: 66-year-old female with a past medical history of MS, Raynaud's, rheumatoid arthritis, scleroderma, presents to the emergency room with aphasia, shortness of breath. Symptoms are reported to be chronic or constant. She denies ataxia, blurred vision, chest pain, seizure she reports experienced a previous similar episode. Reports history of a TIA, plan to admit for pneumonia, NIH stroke scale of 1. - Physical Exam General: Alert, In no apparent distress, Oriented x3 HEENT: Atraumatic, PERRLA, EOMI Neck: Supple, JVD not distended Respiratory: Other (Clear but basilar dry crackles noted) Cardiovascular: Regular rate/rhythm, Normal S1 S2, No murmurs Gastrointestinal: Normal bowel sounds, Soft and benign, Non-distended, No tenderness Musculoskeletal: No clubbing, No swelling, No tenderness Hospital Course: 59-year-old female with a past medical history of MS, rheumatoid arthritis, TIA, scleroderma (on immunosuppressants) presented with shortness of breath. Was noted to have or persist hypoxemia. On chest x-ray was noted to have inters titial pneumonia likely secondary from coronavirus. She was evaluated by pulmonary treated with steroids and IV antibiotics. Also noted to have mild hypokalemia. Condition improved with oxygen, IV antibiotics, steroids. Stable for discharge with follow-up appointment with primary care physician, follow-up with pulmonary after discharge, discharged home on p.o. Levaquin, doxycycline, anticoagulation to prevent blood clots. PROBLEM: COVID-19 with Pneumonia (J12.89, Other viral pneumonia) Acute hypoxic respiratory failure secondary failure due to to pneumonia Pulmonary fibrosis Interstitial lung disease Scleroderma on immunosuppressive Elevated CRP History of MS Prescription continue levofloxacin and doxycycline 100 p.o. twice daily outpatient for pulmonary Prescription for Xarelto for PE, DVT prophylaxis Repeat chest x-ray 04/23/23 IMPRESSION: Stable airspace opacities as above, concerning for pneumonia. Implantable rhythm monitoring device in place. Chest CT 04/15 IMPRESSION: Patchy moderately severe bilateral airspace opacities are present likely related to infection/pneumonia. A viral pneumonitis is a possibility Evaluated with home O2 plan to discharge with home O2 She declined home health for social worker aide Follow-up with vocational adviser outpatient for workup and evaluation of pulmonary hypertension Continue home medicines as previously prescribed GOAL: Clear understanding of disease process INSTRUCTIONS: Physician Discharge Instructions: -DC IV and DC home -Follow-up with PCP in 1 to 2 weeks -Please call Dr. Gilbert at [phone] if any questions regarding hospital stay -Please call nursing station at [phone] if any nursing or medication questions -Return to the emergency room if symptoms worsen Diet: ADA, low sodium Activity: Fall precautions DME: home O2 was previously arranged with [facility] Date Ordered: 04/22/23 Name of Company: [employer] Services Needed: None Date or Referral: IMMUNIZATION Influenza Vaccine Indicated: Influenza Vaccine Given: Date Given: Pneumonia Vaccine Indicated: Pneumonia Vaccine Given: Date Given: Vital Signs/Physical Exam: Temp Pulse Resp BP Pulse Ox 100.8 F 112 H 20 109/65 92 04/24/23 04:29 04/24/23 04:00 04/24/23 04:00 04/24/23 04:00 04/24/23 04:00 Laboratory Data at Discharge: WBC 6.50 thou/uL (4.3-10.9) 04/24/23 05:05 Hgb 11.3 g/dL (12.0-15.0) L 04/24/23 05:05 Hct 32.3 % (36.0-45.0) L 04/24/23 05:05 Plt Count 332 thou/uL (152-406) 04/24/23 05:05 Sodium 127 mEq/L (136-145) L D 04/24/23 05:05 Potassium 4.1 mEq/L (3.5-5.1) 04/24/23 05:05 BUN 14 mg/dL (7-18) 04/24/23 05:05 Creatinine 0.53 mg/dL (0.55-1.02) L 04/24/23 05:05 Glucose 99 mg/dL (74-106) 04/24/23 05:05 Magnesium 2.1 mg/dL (1.6-2.4) 04/20/23 05:15 Total Bilirubin 0.7 mg/dL (0.2-1.0) 04/24/23 05:05 AST 23 U/L (15-37) 04/24/23 05:05 ALT 32 U/L (13-56) 04/24/23 05:05 Alkaline Phosphatase 71 U/L (45-117) 04/24/23 05:05 Home Medications: Aspirin 81 mg PO DAILY 10/16/16 Calcium Carbonate/Vitamin D3 [Calcium 500-Vit D3 125 Caplet] 1 each PO BID 10/16/16 Dimethyl Fumarate [Tecfidera] 240 mg PO BID 10/16/16 Diphenhydramine [Benadryl*] 25 mg PO BEDTIME PRN PRN 10/16/16 Hydroxychloroquine [Plaquenil*] 200 mg PO DAILY 10/16/16 Multivitamin [Daily Multiple Vitamin] 1 each PO DAILY 10/16/16 Nifedipine [Nifedipine ER] 30 mg PO DAILY 10/16/16 Pantoprazole [Protonix Tab*] 40 mg PO BID 10/16/16 Doxycycline Hyclate 100 mg PO BID 7 Days #14 tab 04/25/23 Promethazine/Dextrometh Syr [Phenergan Dm Oral Syrup*] 5 ml PO Q6H PRN 10 Days #200 ml 04/25/23 Rivaroxaban [Xarelto*] 10 mg PO DAILY 15 Days #15 tab 04/25/23 dexAMETHasone [Decadron*] 2 mg PO DAILY 15 Days #15 tab 04/25/23 levoFLOXacin [Levaquin*] 750 mg PO DAILY 7 Days #7 tab 04/25/23 New Medications: dexAMETHasone [Decadron*] 2 mg PO DAILY 15 Days #15 tab Doxycycline Hyclate 100 mg PO BID 7 Days #14 tab levoFLOXacin [Levaquin*] 750 mg PO DAILY 7 Days #7 tab Promethazine/Dextrometh Syr [Phenergan Dm Oral Syrup*] 5 ml PO Q6H PRN 10 Days #200 ml PRN Reason: Cough Rivaroxaban [Xarelto*] 10 mg PO DAILY 15 Days #15 tab Physician Discharge Instructions: 59-year-old female with a past medical history of MS, rheumatoid arthritis, TIA, scleroderma (on immunosuppressants) presented with expressive aphasia,. Was admitted for persist hypoxemia. On chest x-ray was noted to have interstitial pneumonia likely secondary from coronavirus. She was evaluated by pulmonary treated with steroids and IV antibiotics. Also noted to have mild hypokalemia. Condition improved with oxygen, IV antibiotics, steroids. Stable for discharge with follow-up appointment with primary care physician. PROBLEM: COVID-19 with Pneumonia (J12.89, Other viral pneumonia) Acute hypoxic respiratory failure secondary failure due to to pneumonia Pulmonary fibrosis Interstitial lung disease Scleroderma on immunosuppressive Elevated CRP History of MS Prescription continue levofloxacin and doxycycline 100 p.o. twice daily outpatient for pulmonary Prescription for Xarelto for PE, DVT prophylaxis Repeat chest x-ray 04/23/23 IMPRESSION: Stable airspace opacities as above, con cerning for pneumonia. Implantable rhythm monitoring device in place. Chest CT 04/15 IMPRESSION: Patchy moderately severe bilateral airspace opacities are present likely related to infection/pneumonia. A viral pneumonitis is a possibility Evaluated with home O2 plan to discharge with home O2 She declined home health for social worker aide Follow-up with vocational adviser outpatient for workup and evaluation of pulmonary hypertension Continue home medicines as previously prescribed GOAL: Clear understanding of disease process INSTRUCTIONS: Physician Discharge Instructions: -DC IV and DC home -Follow-up with PCP in 1 to 2 weeks -Please call Dr. Gilbert at [phone] if any questions regarding hospital stay -Please call nursing station at [phone] if any nursing or medication questions -Return to the emergency room if symptoms worsen Diet: ADA, low sodium Activity: Fall precautions DME: home O2 was previously arranged with [facility] Date Ordered: 04/22/23 Name of Company: [employer] Services Needed: None Date or Referral: IMMUNIZATION Influenza Vaccine Indicated: Influenza Vaccine Given: Date Given: Pneumonia Vaccine Indicated: Pneumonia Vaccine Given: Date Given: Diet: AHA Activity: Fall precautions Followup: Mark Bustamante MD [ACTIVE - CAN ADMIT] - Donnie Arias MD [Primary Care Provider] - Time spent managing pt's care (in minutes): 55
--- NOTE | 2023-04-24 08:30 | PN ---
The patient had another slight chill with resulting temperature over 100 earlier today. A blood cult ure will be taken now. Although, it is probably secondary to the viral pneumonia. Still feels quite weak. However, participating in PT. Arrangements have been made today for her to be discharged in n ext day or so with Home Health for O2, PT and OT as well as general medicine with a plan for staying here for 1 week and perhaps going back to her daughter in [facility]. We will continue to monitor . I have added her breathing machine treatments. Still nonproductive cough. HR/MODL Voice ID: [id number] Report ID: [id number]
[2023-04-24] MEDS: DULERA 200/5 (MOMETASONE/FORMOTEROL) INHALER IH SCH (08:57)
[2023-04-24] MEDS: AMLODIPINE 5 MG TAB PO SCH (08:58)
[2023-04-24] MEDS: POTASSIUM CL SA 10 MEQ TAB PO SCH (08:58)
[2023-04-24] MEDS: DOXYCYCLINE 100 MG CAP PO SCH ×2 (08:59→20:21)
[2023-04-24] MEDS: FAMOTIDINE 20 MG TAB PO SCH (08:59)
[2023-04-24] MEDS: ENOXAPARIN 40 MG/0.4 ML SQ SCH (08:59)
[2023-04-24] MEDS: ENSURE ENLIVE 237 ML CAN PO SCH ×2 (08:59→21:00)
[2023-04-24] MEDS ORDERED: PROMETHAZINE-DM 5 ML OSYR PO PRN (08:59)
[2023-04-24] MEDS: DOCUSATE NA/SENNA CONC 1 TAB PO SCH (08:59)
[2023-04-24] MEDS: levoFLOXacin 750 MG TAB PO SCH (08:59)
--- NOTE | 2023-04-24 09:03 | P.PN ---
Subjective Date of Service: 04/24/23 Chief Complaint: Fever/nausea Patient is complaining of nausea that started yesterday apparently her food does not taste very good still feels very weak pressure spikes of decreased Review of Systems General: Fever Respiratory: Shortness of Breath Gastrointestinal: Nausea Physical Examination - Vital Signs Temperature: 97 F Blood Pressure: 93/58 Pulse: 88 Respirations: 18 Pulse Ox (%): 93 - Physical Exam General: Alert, Oriented x3 Respiratory: Clear to auscultation bilaterally Cardiovascular: No edema, Normal pulses, Normal S1 S2 Assessment And Plan - Current Problems (Diagnosis) (1) Interstitial pneumonia of both lungs Current Visit: Yes Status: Acute Plan: Patient has improved temperature spikes have decreased in intensity patient started complaining of feeling nausea she does take Nexium at home it could be rebound acidity we will chemical cell changer to pantoprazole continue with levofloxacin and doxycycline for now also added promethazine DC bronchodilators add Dulera add low-dose Decadron oxygen has been I will arrange patient is having mild hyponatremia avoid all diuretics for now changed to Xarelto for DVT prophylaxis
[2023-04-24 10:28] LABS: Blood Morphology Comment NOT SEEN (NOT SEEN); Platelet Estimate ADEQ; White Blood Cell Scan OK (OK)
[2023-04-24] MEDS: ONDANSETRON 4 MG/2 ML VIAL IV PRN (10:28)
[2023-04-24] MEDS: dexAMETHasone 4 MG TAB PO SCH (10:35)
[2023-04-24] MEDS: PANTOPRAZOLE 40MG TABLET PO SCH (10:35)
[2023-04-24] MEDS: RIVAROXABAN 10 MG TABLET PO SCH (10:36)
--- NOTE | 2023-04-24 21:04 | P.PN ---
Subjective Date of Service: 04/24/23 Patient is a 68-year-old female who was signed off to me by her PCP for the weekend. Patient is a 68-year-old female with a history of scleroderma. She came to the hospital with persistent hypoxemia. Patient was felt to have a viral pneumonia. She is on antibiotics for atypical pneumonia as well. Howeve r, her procalcitonin level is negative. She does have a history of scleroderma and she is on immunosuppressants. She is also on steroids. This was held for couple days. There is a concern for pulmonary fibrosis. Patient does have some dry crackles. Echocardiogram has been ordered. Patient may have pulmonary hypertension in the setting of scleroderma. Patient will be continued on steroids and will await for echocardiogram results. Patient has home oxygen arranged as well. If she remains afebrile, patient may be able to go home over the weekend. Review of Systems 10-point ROS is otherwise unremarkable Physical Examination - Vital Signs Temperature: 98 F Blood Pressure: 104/61 Pulse: 83 Respirations: 18 Pulse Ox (%): 96 - Physical Exam General: Alert, In no apparent distress, Oriented x3 HEENT: Atraumatic, PERRLA, EOMI Neck: Supple, JVD not distended Respiratory: Other (Clear but basilar dry crackles noted) Cardiovascular: Regular rate/rhythm, Normal S1 S2, No murmurs Gastrointestinal: Normal bowel sounds, Soft and benign, Non-distended, No tenderness Musculoskeletal: No clubbing, No swelling, No tenderness Integumentary: No rashes Neurological: Sensation intact, Cranial nerves 3-12 intact - Studies Medications List Reviewed: Yes Assessment & Plan - Problems (Diagnosis) (1) Hypoxemia Current Visit: Yes Status: Acute (2) History of scleroderma Current Visit: Yes Status: Acute (3) Pulmonary fibrosis Current Visit: Yes Status: Acute (4) Interstitial pneumonia of both lungs Current Visit: Yes Status: Acute - Plan Plan: 1. O2 per protocol 2. Continue with IV steroids 3. Inflammatory markers 4. Echocardiogram to monitor pulmonary hypertension 5. Monitor labs 6. Outpatient workup for pulmonary fibrosis 7. GI DVT prophylaxis Discharge Plan: Home Plan to discharge in: Greater than 2 days - Advance Directives Does patient have a Living Will: No Does patient have a Durable POA for Healthcare: No - Code Status/Comfort Care Code Status Assessed: Yes Code Status: Full Code Critical Care: No Time Spent Managing PTS Care (In Minutes): 35
[2023-04-25 06:43] LABS: Absolute Lymphocytes (CBC) 0.4 K/uL (0.7-4.9); Hematocrit 31.4 % (36.0-45.0); Lymphocytes % 6.6 % (15.3-44.8); MCV 85.2 fL (80-100); MPV 6.6 fL (7.6-11.3); Platelets 385 thou/uL (152-406); RBC Red Blood Cell Count 3.69 M/uL (3.86-4.86)
[2023-04-25 07:01] LABS: Magnesium 1.9 mg/dL (1.6-2.4)
[2023-04-25 07:11] LABS: Bilirubin Total 0.5 mg/dL (0.2-1.0); Potassium 4.1 mEq/L (3.5-5.1); Protein, Total 5.5 g/dL (6.4-8.2)
[2023-04-25] MEDS: levoFLOXacin 750 MG TAB PO SCH (08:21)
[2023-04-25] MEDS: DOXYCYCLINE 100 MG CAP PO SCH ×2 (08:21→21:22)
[2023-04-25] MEDS: dexAMETHasone 4 MG TAB PO SCH (08:21)
[2023-04-25] MEDS: PANTOPRAZOLE 40MG TABLET PO SCH (08:21)
[2023-04-25] MEDS: AMLODIPINE 5 MG TAB PO SCH (08:21)
[2023-04-25] MEDS: DOCUSATE NA/SENNA CONC 1 TAB PO SCH (08:21)
[2023-04-25] MEDS: RIVAROXABAN 10 MG TABLET PO SCH (08:22)
[2023-04-25] MEDS: ENSURE ENLIVE 237 ML CAN PO SCH ×2 (08:22→21:00)
--- NOTE | 2023-04-25 11:04 | P.PN ---
Subjective Date of Service: 04/25/23 Chief Complaint: Coronavirus pneumonia Patient is doing much better today less nauseated feeling weak a little short of breath Review of Systems General: Weakness Respiratory: Shortness of Breath Physical Examination - Vital Signs Temperature: 98.1 F Blood Pressure: 111/64 Pulse: 81 Respirations: 17 Pulse Ox (%): 94 - Physical Exam General: Alert, Oriented x3 Cardiovascular: No edema, Regular rate/rhythm, Normal S1 S2 - Studies Medications List Reviewed: Yes Assessment And Plan - Current Problems (Diagnosis) (1) Interstitial pneumonia of both lungs Current Visit: Yes Status: Acute Plan: Patient is doing much better no fever recently continue with low-dose dexamethasone 2 mg patient denies any more nausea continue with her PPI at home to be discharged home on levofloxacin and doxycycline for 7 days will taper off the dexamethasone as an outpatient will also need promethazine for nausea Xarelto is for DVT prophylaxis Discharge Plan: Home
--- NOTE | 2023-04-25 17:04 | P.PN ---
Subjective Date of Service: 04/25/23 Chief Complaint: Fever Resting in bed, family at bedside no reported fever, shortness of breath, cough - Physical Exam General: Alert, In no apparent distress, Oriented x3 HEENT: Atraumatic, PERRLA, EOMI Neck: Supple, JVD not distended Respiratory: Other (Clear but basilar dry crackles noted) Cardiovascular: Regular rate/rhythm, Normal S1 S2, No murmurs Gastrointestinal: Normal bowel sounds, Soft and benign, Non-distended, No tenderness Musculoskeletal: No clubbing, No swelling, No tenderness Integumentary: No rashes Neurological: Sensation intact, Cranial nerves 3-12 intact Review of Systems per HPI Physical Examination - Vital Signs Temperature: 97.4 F Blood Pressure: 106/60 Pulse: 88 Respirations: 17 Pulse Ox (%): 99 - Studies Medications List Reviewed: Yes Assessment And Plan - Plan - Problems (Diagnosis) Acute hypoxic respiratory failure secondary to COVID-pneumonia acute Interstitial pneumonia of both lungs acute Pulmonary fibrosis acute Pulmonary hypertension acute Current Visit: Yes Status: Acute Pulmonary consult, Plan to discharge home on O2 portable P.o. doxycycline, p.o. Levaquin per pulmonary On Xarelto [address] Jasmin Castellanos after discharge. Pulmonary hypertension History of scleroderma acute Current Visit: Yes Status: Acute Is on steroids daily, Immunosuppression Plan: 1. O2 per protocol 2. Continue with IV steroids 3. Inflammatory markers 4. Echocardiogram to monitor pulmonary hypertension 5. Monitor labs 6. Outpatient workup for pulmonary fibrosis 7. GI DVT prophylaxis Discharge Plan: Home Plan to discharge in: Greater than 2 days Discharge Plan: Home - Code Status/Comfort Care Code Status: Full Code Critical Care: No Time Spent Managing PTS Care (In Minutes): 35
[2023-04-25] MEDS ORDERED: MAGNES/ALUMIN/SIMET 30ML UCUP PO PRN (22:03)
[2023-04-26 06:54] LABS: Absolute Lymphocytes (CBC) 0.5 K/uL (0.7-4.9); Lymphocytes % 7.1 % (15.3-44.8); MCV 85.5 fL (80-100); MPV 6.5 fL (7.6-11.3); Platelets 377 thou/uL (152-406); RBC Red Blood Cell Count 3.74 M/uL (3.86-4.86)
[2023-04-26 07:06] LABS: Bilirubin Total 0.5 mg/dL (0.2-1.0); Potassium 3.7 mEq/L (3.5-5.1); Protein, Total 5.5 g/dL (6.4-8.2)
[2023-04-26] MEDS: ENSURE ENLIVE 237 ML CAN PO SCH (08:06)
[2023-04-26] MEDS: PANTOPRAZOLE 40MG TABLET PO SCH (08:07)
[2023-04-26] MEDS: DOCUSATE NA/SENNA CONC 1 TAB PO SCH (08:07)
[2023-04-26] MEDS: levoFLOXacin 750 MG TAB PO SCH (08:07)
[2023-04-26] MEDS: DOXYCYCLINE 100 MG CAP PO SCH (08:07)
[2023-04-26] MEDS: RIVAROXABAN 10 MG TABLET PO SCH (08:07)
[2023-04-26] MEDS: dexAMETHasone 4 MG TAB PO SCH (08:08)
[2023-04-26] MEDS: AMLODIPINE 5 MG TAB PO SCH (08:09)
[2023-04-26 08:28] VITALS: O2SAT 92
[2023-04-26 14:47] VITALS: BP 96/56; TEMP 98.7
--- NOTE | 2023-04-27 07:05 | ECHO ---
HEIGHT: 5 ft 11 in WEIGHT: 145 lb 8 oz DATE OF STUDY: 04/24/[address]: Gerardo Gilbert MD 2-DIMENSIONAL: YES M.MODE: YES DOPPLER: YES COLOR FLOW: YES TDS: PORTABLE: YES DEFINITY: BUBBLE STUDY: DIAGNOSIS: HYPOXEMIA CARDIAC HISTORY: CATHERIZATION: NO SURGERY: NO PROSTHETIC VALVE: NO PACEMAKER: NO MEASUREMENTS (cm) DIASTOLIC (NORMALS) SYSTOLIC (NORMALS) IVSd 0.9 (0.6-1.2) LA Diam 2.9 (1.9-4.0) LVEF 69% LVIDd 4.1 (3.5-5.7) LVIDs 2.5 (2.0-3.5) %FS 38% LVPWd 1.0 (0.6-1.2) Ao Diam 2.9 (2.0-3.7) 2 DIMENSIONAL ASSESSMENT: RIGHT ATRIUM: NORMAL LEFT ATRIUM: NORMAL RIGHT VENTRICLE: NORMAL LEFT VENTRICLE: NORMAL TRICUSPID VALVE: MILD TRICUSPID REGURGITATION MITRAL VALVE: NORMAL PULMONIC VALVE: NORMAL AORTIC VALVE: NORMAL PERICARDIAL EFFUSION: NONE AORTIC ROOT: NORMAL LEFT VENTRICULAR WALL MOTION: NORMAL DOPPLER/COLOR FLOW: SEE BELOW COMMENTS: 1. NORMAL LEFT VENTRICULAR EJECTION FRACTION 60-65% 2. NORMAL WALL MOTION 3. GRADE I DIASTOLIC DYSFUNCTION 4. MILD TRICUSPID REGURGITATION TECHNOLOGIST: RAYSHAWN COLEMAN
== END 2023-04-26 15:20 | disposition home health service (06) | DRG 193 ==
LOC: ER 10:02 → ERHOLD 12:36 → 4TH 13:36
PROVIDERS: ADMIT Family Medicine; ATTEND Hospitalist
DX: J12.89 Other viral pneumonia (principal); J96.01 Acute respiratory failure with hypoxia; N39.0 Urinary tract infection, site not specified; R47.01 Aphasia; J44.0 Chronic obstructive pulmonary disease with (acute) lower respiratory infection; U09.9 Post COVID-19 condition, unspecified; J84.178 Other interstitial pulmonary diseases with fibrosis in diseases classified elsewhere; M34.9 Systemic sclerosis, unspecified; E87.6 Hypokalemia; G35 Multiple sclerosis; J84.10 Pulmonary fibrosis, unspecified; B96.20 Unspecified Escherichia coli [E. coli] as the cause of diseases classified elsewhere; Z11.52 Encounter for screening for COVID-19; Z90.49 Acquired absence of other specified parts of digestive tract; Z79.82 Long term (current) use of aspirin; Z79.899 Other long term (current) drug therapy
CPT/HCPCS: 36415; 71045; 71250; 71275; 74018; 74177; 80048; 80053; 80202; 81001; 82533; 83540; 83735; 83880; 84132; 84145; 85025; 86038; 86140; 87040; 87070; 87077; 87086; 87088; 87186; 87205; 87804; 87811; 93005; 93306; 94010; 94640; 94760; 97110; 97116; 97161; 97530; J0692; J1100; J1650; J1940; J2405; J2920; J3535; J7030; J7040; J7050; J7512; J7613; J7644; J8540; Q9967

== ENCOUNTER 2024-05-22 18:44 | Emergency (ER) | payer OTHER ==
--- NOTE | 2024-05-22 19:08 | RAD REPORT ---
EXAM: CT brain without contrast HISTORY: Aphasia COMPARISON::2021 TECHNIQUE: Multiple contiguous axial images were obtained and a CT of the brain without contrast. Sagittal and coronal reformats were performed. Automated exposure control, adjustment of the mA and/or kV according to patient size, and/or itera tive reconstruction. Unless otherwise specified, incidental findings do not require dedicated imaging follow-u FINDINGS: An intracranial bleed is not seen Ventricles are normal caliber No extra-axial fluid collection noted Moderate low-density paraventricular, deep and subcortical white matter likely ischemic changes secon mohamud to small vessel disease. No fluid within the visualized sinuses or mastoids noted. IMPRESSION: No acute intracranial abnormality noted. If the patient's symptoms persist MRI of the brain would be recommended. from the emergency room was notified at 7:03 PM May 22, 2024
[2024-05-22 19:17] LABS: Absolute Eosinophils 0.1 K/uL (0-0.5); Absolute Lymphocytes (CBC) 3.7 K/uL (0.7-4.9); Absolute Monocytes 0.6 K/uL (0.1-1.3); Absolute Neutrophil 4.2 K/uL (1.8-8.0); Basophils % 0.5 % (0-1.3); Eosinophils % 1.5 % (0-4.4); Hematocrit 44.1 % (36.0-45.0); Hemoglobin 14.7 g/dL (12.0-15.0); Lymphocytes % 42.8 % (15.3-44.8); MCH 29.9 pg (27.0-35.0); MCHC 33.3 g/dL (32.0-36.0); MCV 89.8 fL (80-100); MPV 7.2 fL (7.6-11.3); Monocytes % 7.2 % (3.3-12.3); Nucleated Red Blood Cells % 0.1 % (0-0); Platelets 269 thou/uL (152-406); RBC Red Blood Cell Count 4.91 M/uL (3.86-4.86); Red Cell Distribution Width 13.2 % (12.1-15.2)
[2024-05-22 19:21] LABS: PT Prothrombin Time 10.4 SECONDS (10.0-13.0); PTT, Activated Partial Thromb 30.9 SECONDS (24.3-36.9); Protime INR 0.91
--- NOTE | 2024-05-22 19:21 | RAD REPORT ---
EXAMINATION: CTA HEAD CLINICAL INDICATION: Aphasia TECHNIQUE: Axial CT images were obtained through the head after 100 cc Isovue-370 intravenous contras t utilizing angiographic protocol with 3D post-processing (maximum intensity projection images, volume rendered images and/or shaded surface rendered images). One or more of the following dose red uction techniques were used: Automated exposure control, adjustment of the mA and/or kV according to patient size, and/or iterative reconstruction. Unless otherwise specified, incidental findings do not require dedicated imaging follow-up. COMPARISON: 2021 FINDINGS: Mild to moderate calcified plaque distal left internal carotid artery. Mild calcified plaque distal r ight internal carotid artery. Basilar, anterior cerebral, middle cerebral and posterior cerebral arteries do not demonstrate a sign ificant stenosis origin right posterior cerebral artery An aneurysm not noted. No large vessel occlusion IMPRESSION: No acute vascular abnormality displayed
--- NOTE | 2024-05-22 19:21 | RAD REPORT ---
EXAMINATION: Neck Angio CLINICAL INDICATION: Aphasia TECHNIQUE: Axial CT images were obtained from the aortic arch to the skull base after intravenous adm inistration of 100 cc Isovue-370 utilizing angiographic protocol. Multiplanar reformats, as well as 3D post-processing (maximum intensity projection images, volume rendered images and/or shaded surface rendered images) were generated and reviewed. One or more of the following dose reduction techniques were used: Automated exposure control, adjustment of the mA and/or kV according to patient size, and/or iterative reconstruction. Unless otherwise specified, incidental findings do not require dedicated imaging follow-up. COMPARISON: 2021. FINDINGS: The visualized aortic arch and great vessels do not demonstrate a significant abnormality Mild plaque within common carotid, internal carotid and external carotid arteries bilaterally Mild plaque vertebral arteries. No significant stenosis noted. A dissection is not seen. Methods for NASCET criteria: Mild stenosis, 0% to 49%; Moderate stenosis 50% to 69%; Severe stenosis, 70% to 99% IMPRESSION: No acute vascular abnormality displayed
[2024-05-22 19:28] LABS: ALT/SGPT 27 U/L (13-56); AST/SGOT 20 U/L (15-37); Albumin 3.4 g/dL (3.4-5.0); Albumin/Globulin Ratio 1.1 (1.1-1.8); Alkaline Phosphatase 110 U/L (45-117); Anion Gap 11.7 mEq/L (5.0-15.0); BUN Blood Urea Nitrogen 30 mg/dL (7-18); Bicarbonate 25 mEq/L (21-32); Bilirubin Total 0.5 mg/dL (0.2-1.0); Globulin 3.2 g/dL (2.3-3.5); Glomerular Filtration Rate 73 ml/min (=/>90); Glucose Level 100 mg/dL (74-106); HDL Cholesterol 67 mg/dL (40-60); LDL Cholesterol, Calculated 167 mg/dL (<130); LDL Cholesterol,Calc NonReport 167; Magnesium 2.1 mg/dL (1.6-2.4); Potassium 3.7 mEq/L (3.5-5.1); Protein, Total 6.6 g/dL (6.4-8.2); Sodium Level 135 mEq/L (136-145); Troponin High Sensitivity 4.3 pg/mL (<58.9)
[2024-05-22 19:34] LABS: Bilirubin Direct < 0.2 mg/dL (0-0.2); Bilirubin Indirect, Calculated 0.3 mg/dL (0.2-0.8); C-Reactive Protein < 2.90 mg/L (<3.00)
[2024-05-22] MEDS ORDERED: FOLIC ACID 5 MG/ML VIAL ONE (19:37)
[2024-05-22] MEDS ORDERED: FAMOTIDINE 20 MG/2 ML VIAL IV ONE (19:37)
[2024-05-22] MEDS ORDERED: TENECTEPLASE 50 MG/10 ML VIAL IV ONE (19:38)
[2024-05-22] MEDS ORDERED: NA CHLORIDE 0.9% 1,000 ML ONE (19:38)
--- NOTE | 2024-05-22 19:45 | ER ---
Nurse's Notes [facility] Name: Steffanie Downs Age: 69 yrs Sex: Female : 1955 Arrival Date: 05/22/2024 Time: 18:44 Bed 8 Private MD: Diagnosis: Aphasia following cerebral infarction;Aphasia;Cerebral infarction, unspecified-Acute Presentation: 05/22 18:49 Chief complaint: Patient states: about 10 -15 minutes ago she started having garbled iw speech and not making sense, now she feels better other than she is slow to get her words out , previous TIA with similar deficits. Coronavirus screen: At this time, the client does not indicate any symptoms associated with coronavirus-19. Ebola Screen: No symptoms or risks identified at this time. Pre-hospital glucose is not applicable to this patient. Initial Sepsis Screen: Does the patient meet any 2 criteria? No. Patient's initial sepsis screen is negative. Does the patient have a suspected source of infection? No. Patient's initial sepsis screen is negative. Risk Assessment: Do you want to hurt yourself or someone else? Patient reports no desire to harm self or others. Onset of symptoms was May 22, 2024 at 18:35. 18:49 Method Of Arrival: Wheelchair iw 18:49 Acuity: KRISTIE 2 iw Triage Assessment: 19:15 The onset of the patients symptoms was May 22, 2024 at 18:30. General: Appears br2 uncomfortable, Behavior is cooperative, agitated. Neuro: Level of Consciousness is awake, alert, obeys commands, Oriented to person, Car Ferrier are equal bilaterally Moves all extremities. Gait is steady, Speech with expressive aphasia noted, Reports. Stroke Activation: Symptom onset < 3 hours Physician: ED Attending; Name: Dr. Negron; Notified At: 18:52; Arrived At: Physician: Mid-Level Provider; Name: ; Notified At: 18:52; Arrived At: Physician: [not used]; Name: ; Notified At: ; Arrived At: Physician: [not used]; Name: ; Notified At: ; Arrived At: Physician: [not used]; Name: ; Notified At: ; Arrived At: Historical: - Allergies: 18:56 No Known Allergies; iw - PMHx: 18:52 Multiple Sclerosis; Rheumatoid Arthritis; Raynauds; scleraderma; ld1 - PSHx: 18:52 Appendectomy; ld1 - Immunization history:: Adult Immunizations up to date. - Infectious Disease History:: Denies. - Social history:: Smoking status: Patient denies any tobacco usage or history of. - Family history:: not pertinent. Screenin:[birth year] [facility] ED Fall Risk Assessment (Adult) History of falling in the last 3 months, ld1 including since admission No falls in past 3 months (0 pts) Confusion or Disorientation No (0 pts) Intoxicated or Sedated No (0 pts) Impaired Gait No (0 pts) Mobility Assist Device Used No (0 pt) Altered Elimination No (0 pt) Score/Fall Risk Level 0 - 2 = Low Risk Oriented to surroundings, Hourly rounding (assess needs \T\ fall precautionary measures) done. Abuse screen: Denies threats or abuse. Denies injuries from another. Nutritional screening: No deficits noted. Tuberculosis screening: No symptoms or risk factors identified. Assessment: 18:52 Reassessment: code stroke called. ld1 19:15 VAN Scoring: Arm Drift: Patients demonstrates NO arm weakness. Patient is VAN Negative. br2 Visual Disturbance: No visual disturbance noted. Aphasia: Expressive aphasia noted. Provider notified of +VAN scoring. Tucker Swallow Protocol 3 oz Water Swallow Challenge:. Tucker Swallow Protocol Exclusion Criteria: NPO for medical/surgical reason by provider order. TNKase (Tenecteplase) Screening: Indications: Treatment will start within 4.5 hours onset of symptoms: Yes. Pain: Complains of pain in forehead Pain currently is 3 out of 10 on a pain scale. Quality of pain is described as aching. Neuro: Connolly Agitation-Sedation Scale (RASS): +1 Restless Level of Consciousness is awake, alert, obeys commands, confused, Oriented to person, place, Car Ferrier are equal bilaterally Moves all extremities. Gait is steady, Speech with expressive aphasia noted, Facial symmetry appears normal, Pupils are PERRLA, Pupil Size: 3 Intact. Cardiovascular: Capillary refill < 3 seconds Rhythm is. Respiratory: No deficits noted. Airway is patent Respiratory effort is even, unlabored, Respiratory pattern is regular, symmetrical. GI: Abdomen is flat, Bowel sounds present X 4 quads. : No signs and/or symptoms were reported regarding the genitourinary system. EENT: No signs and/or symptoms were reported regarding the EENT system. Derm: No signs and/or symptoms reported regarding the dermatologic system. Musculoskeletal: No signs and/or symptoms reported regarding the musculoskeletal system. Vital Signs: 18:49 BP 180 / 98; Pulse 89; Resp 16; Pulse Ox 97% on R/A; iw 19:33 Weight 65.77 kg; Height 5 ft. 10 in. ; br2 19:45 BP 177 / 102; Pulse 84; Resp 18 S; Pulse Ox 97% on R/A; br2 20:00 BP 171 / 95; Pulse 95; Resp 18; Pulse Ox 97% on R/A; br2 20:15 BP 167 / 111; Pulse 80; Resp 18; Pulse Ox 98% on R/A; br2 20:30 BP 176 / 97; Pulse 81; Resp 18; Pulse Ox 100% on R/A; br2 21:15 BP 174 / 94; Pulse 84; Resp 18; Pulse Ox 98% ; br2 19:33 Body Mass Index 20.81 (65.77 kg, 177.8 cm) br2 NIH Stroke Scale Scores: 19:15 NIHSS Score: 2 br2 19:34 NIHSS Score: 2 [facility] ED Course: 18:45 Patient arrived in ED. mr 18:52 Arm band placed on right wrist. ld1 18:53 Patient has correct armband on for positive identification. Placed in gown. Bed in low ld1 position. Call light in reach. Side rails up X2. monitoring analyst on. Pulse ox on. NIBP on. Door closed. Noise minimized. Warm blanket given. 18:56 Brett Negron MD is Attending Physician. [facility] 18:56 Triage completed. iw 19:00 CT Stroke Brain w/o Contrast In Process Unspecified. EDMS 19:05 Attending Physician role handed off by Brett Negron MD sp3 19:05 Ruy Duenas MD is Attending Physician. sp3 19:07 Initial lab(s) drawn, by ut, sent to lab. Inserted saline lock: 22 gauge in left jl7 antecubital area, using aseptic technique. Blood collected. Flushed with 10 mL NS. 19:08 CT Head Angio In Process Unspecified. EDMS 19:08 CT Neck Angio In Process Unspecified. EDMS 19:14 Karie Malloy, RN is Primary Nurse. br2 19:15 Provided Education on: plan of care. br2 19:30 initiated transfer with Lyn at [facility]. kmf 19:37 Stroke CXR 1 View In Process Unspecified. EDMS 19:52 [facility] declined due to cap.. kmf 19:52 initiated transfer with Shantal \T\ [facility]. kmf 20:34 pt was accepted to [facility] by Rm Mallory \T\ 2011. Admin approval given by Shantal Bahena \T\ km f 2011. Number for nurse to nurse report [phone]. [facility] to transfer pt once nurse to nurse is complete. 21:25 No provider procedures requiring assistance completed. Patient transferred, IV remains br2 in place. 21:38 Report given to YULI AT [facility] 7 SOUTH BED 13. br2 Administered Medications: 19:51 Drug: TNK FOR STROKE - Tenecteplase IV (Administer 10 ml NS flush BEFORE and br2 AFTER tenecteplase) 16 mg IV at per protocol once; 0.25mg/kg, MAX DOSE 25 mg, IVP over 5 seconds {Co-Signature: cp4 (Anabela Christiansen).} Route: IV; Rate: per protocol; Site: left antecubital; 19:55 Follow up: Response: No adverse reaction; IV Intake: 3.2ml br2 19:53 Drug: NS 0.9% IV 1000 ml IV at 1000 ml once; to be given as a bolus over 60 minutes br2 Route: IV; Rate: 1000 ml; Site: left antecubital; 21:00 Follow up: Response: No adverse reaction; IV Status: Completed infusion; IV Intake: br2 1000ml 19:53 Drug: foLIC Acid IVPB 1 mg IVPB once Route: IVPB; Site: left antecubital; br2 20:30 Follow up: Response: No adverse reaction; IV Status: Completed infusion; IV Intake: br2 0.2ml 19:53 Drug: Famotidine IVP 20 mg IVP once; dilute with 10 mL 0.9% NaCl; give over 2 minutes br2 Route: IVP; Site: left antecubital; 20:20 Follow up: Response: No adverse reaction br2 20:10 Drug: Labetalol IV 10 mg IV at calculated rate once Route: IV; Rate: calculated rate; br2 Site: left antecubital; 20:40 Follow up: Response: No adverse reaction; IV Status: Completed infusion; IV Intake: 1ml br2 21:23 Drug: Labetalol IV 10 mg IV at calculated rate once Route: IV; Rate: calculated rate; br2 Site: left antecubital; 21:25 Follow up: Response: Medication Administered at Departure; IV Status: Completed br2 infusion; IV Intake: 1ml Medication: 18:53 VIS not applicable for this client. ld1 Intake: 19:55 IV: 3ml; Total: 3ml. br2 20:30 IV: 0ml; Total: 3ml. br2 20:40 IV: 1ml; Total: 4ml. br2 21:00 IV: 1000ml; Total: 1004ml. br2 21:25 IV: 1ml; Total: 1005ml. br2 Outcome: 19:44 ER care complete, transfer ordered by . edward 21:25 Transferred by private ambulance [facility]. to [facility], br2 [facility], Transfer form completed. X-rays sent w/ patient. 21:25 Condition: improved 21:25 Instructed on the need for transfer, Demonstrated understanding of instructions, follow-up care, 21:38 Patient left the ED. br2 NIH Stroke Scale - NIH Stroke Score Date: 05/22/2024 Time: 19:15 Total Score = 2 10. Dysarthria (speech clarity - read or repeat words) - 0(Normal) 11. Extinction and Inattention (visual/tactile/auditory/spatial/personal) - 0(No abnormality) 1a. Level of Consciousness (LOC) - 0(Alert) 1b. Level of Consciousness (LOC) (Month \T\ Age) - 1(One) 1c. LOC Commands (Open \T\ Closes Eyes/Mineral Mixer) - 0(Both) 2. Best Gaze (Lateral Gaze Paresis) - 0(Normal) 3. Visual Field Loss - 0(No visual loss) 4. Facial Palsy - 0(Normal) 5a. Left Arm: Motor (10-second hold) - 0(No drift) 5b. Right Arm: Motor (10-second hold) - 0(No drift) 6a. Left Leg: Motor (5-second hold - always test supine) - 0(No drift) 6b. Right Leg: Motor (5-second hold - always test supine) - 0(No drift) 7. Limb Ataxia (finger/nose \T\ heel/zeng - test with eyes open) - 0(Absent) 8. Sensory Loss (pinprick arms/legs/face) - 0(Normal) 9. Best Language: Aphasia (description/naming/reading) - 1(Mild to moderate aphasia) Initials: br2 NIH Stroke Scale - NIH Stroke Score Date: 05/22/2024 Time: 19:34 Total Score = 2 10. Dysarthria (speech clarity - read or repeat words) - 1(Mild to Moderate) 11. Extinction and Inattention (visual/tactile/auditory/spatial/personal) - 0(No abnormality) 1a. Level of Consciousness (LOC) - 0(Alert) 1b. Level of Consciousness (LOC) (Month \T\ Age) - 0(Both) 1c. LOC Commands (Open \T\ Closes Eyes/Mineral Mixer) - 0(Both) 2. Best Gaze (Lateral Gaze Paresis) - 0(Normal) 3. Visual Field Loss - 0(No visual loss) 4. Facial Palsy - 0(Normal) 5a. Left Arm: Motor (10-second hold) - 0(No drift) 5b. Right Arm: Motor (10-second hold) - 0(No drift) 6a. Left Leg: Motor (5-second hold - always test supine) - 0(No drift) 6b. Right Leg: Motor (5-second hold - always test supine) - 0(No drift) 7. Limb Ataxia (finger/nose \T\ heel/zeng - test with eyes open) - 0(Absent) 8. Sensory Loss (pinprick arms/legs/face) - 0(Normal) 9. Best Language: Aphasia (description/naming/reading) - 1(Mild to moderate aphasia) Initials: edward Signatures: Dispatcher [employer] Brett Beltran MD MD cha Rivera, Erika, Reg Reg mr Nikki Zee, RN Olga Aragon RN RN jl7 Lilly Shaver RN RN ld1 Ruy Duenas MD MD sp3 Forrester, Kelsey Maroul km Karie Malloy RN RN br2 Anabela Christiansen cp4 Corrections: (The following items were deleted from the chart) 20:33 20:00 BP 167 / 111; Pulse 80bpm; Resp 18bpm; Pulse Ox 98% RA; br2 br2
--- NOTE | 2024-05-22 19:45 | EDPHYS ---
Physician Documentation [facility] Name: Steffanie Downs Age: 69 yrs Sex: Female : 1955 Arrival Date: 05/22/2024 Time: 18:44 Bed 8 Private MD: ED Physician Ruy Duenas HPI: 05/22 19:26 This 69 yrs old Female presents to ER via Wheelchair with complaints of edward Slurred Speech. 19:26 The patient presents to the emergency department with a speech or higher order brain ewdard function problem, aphasia, that is moderate. Onset: The symptoms/episode began/occurred at 18:45. Context: occurred on a street or driveway. Associated signs and symptoms: Pertinent positives: thought difficulty to express self. Severity of symptoms: At their worst the symptoms were mild moderate in the emergency department the symptoms have improved mildly. Patient's baseline: Neuro: alert and fully oriented. Current symptoms: speech still off, pressured. The patient has experienced similar episodes in the past, several times. Historical: - Allergies: 18:56 No Known Allergies; iw - PMHx: 18:52 Multiple Sclerosis; Rheumatoid Arthritis; Raynauds; scleraderma; ld1 - PSHx: 18:52 Appendectomy; ld1 - Immunization history:: Adult Immunizations up to date. - Infectious Disease History:: Denies. - Social history:: Smoking status: Patient denies any tobacco usage or history of. - Family history:: not pertinent. ROS: 19:26 Constitutional: Negative for fever, chills, and weight loss, Eyes: Negative for injury, edward pain, redness, and discharge, ENT: Negative for injury, pain, and discharge, Neck: Negative for injury, pain, and swelling, Cardiovascular: Negative for chest pain, palpitations, and edema, Respiratory: Negative for shortness of breath, cough, wheezing, and pleuritic chest pain, Abdomen/GI: Negative for abdominal pain, nausea, vomiting, diarrhea, and constipation, Back: Negative for injury and pain, : Negative for injury, bleeding, discharge, and swelling, MS/Extremity: Negative for injury and deformity, Skin: Negative for injury, rash, and discoloration, Psych: Negative for depression, anxiety, suicide ideation, homicidal ideation, and hallucinations, Allergy/Immunology: Negative for hives, rash, and allergies, Endocrine: Negative for neck swelling, polydipsia, polyuria, polyphagia, and marked weight changes, Hematologic/Lymphatic: Negative for swollen nodes, abnormal bleeding, and unusual bruising, 19:26 Neuro: Positive for speech changes, Exam: 19:26 Constitutional: This is a well developed, well nourished patient who is awake, alert, edward and in no acute distress. Head/Face: Normocephalic, atraumatic. Eyes: Pupils equal round and reactive to light, extra-ocular motions intact. Lids and lashes normal. Conjunctiva and sclera are non-icteric and not injected. Cornea within normal limits. Periorbital areas with no swelling, redness, or edema. ENT: Nares patent. No nasal discharge, no septal abnormalities noted. Tympanic membranes are normal and external auditory canals are clear. Oropharynx with no redness, swelling, or masses, exudates, or evidence of obstruction, uvula midline. Mucous membranes moist. Neck: Trachea midline, no thyromegaly or masses palpated, and no cervical lymphadenopathy. Supple, full range of motion without nuchal rigidity, or vertebral point tenderness. No Meningismus. Chest/axilla: Normal chest wall appearance and motion. Nontender with no deformity. No lesions are appreciated. Cardiovascular: Regular rate and rhythm with a normal S1 and S2. No gallops, murmurs, or rubs. Normal PMI, no JVD. No pulse deficits. Respiratory: Lungs have equal breath sounds bilaterally, clear to auscultation and percussion. No rales, rhonchi or wheezes noted. No increased work of breathing, no retractions or nasal flaring. Abdomen/GI: Soft, non-tender, with normal bowel sounds. No distension or tympany. No guarding or rebound. No evidence of tenderness throughout. Back: No spinal tenderness. No costovertebral tenderness. Full range of motion. Skin: Warm, dry with normal turgor. Normal color with no rashes, no lesions, and no evidence of cellulitis. MS/ Extremity: Pulses equal, no cyanosis. Neurovascular intact. Full, normal range of motion., bilateral aka Psych: Awake, alert, with orientation to person, place and time. Behavior, mood, and affect are within normal limits. 19:26 ECG was reviewed by the Attending Physician. 19:26 Neuro: Orientation: is normal, appropriate for stated age, no acute changes, Mentation: is normal, appropriate for stated age, no acute changes, Memory: is normal, appropriate for stated age, no acute changes, Cranial nerves: grossly normal, is grossly normal based on the patient's age, no acute changes, Cerebellar function: is grossly normal, is grossly normal based on the patient's age, no acute changes, Motor: is normal, is grossly normal based on the patient's age, no acute changes, moves all fours, strength is normal, strength is 5/5 in all extremities, Sensation: no obvious gross deficits, appropriate no acute changes, Gait: not tested. Deep tendon reflexes are 2+ (normal) in the bilateral brachioradialis, bicep, tricep and patellar and Achilles tendons, seizure activity, is not displayed by the patient, Abnormal movements: there are no abnormal movements, Vital Signs: 18:49 BP 180 / 98; Pulse 89; Resp 16; Pulse Ox 97% on R/A; iw 19:33 Weight 65.77 kg; Height 5 ft. 10 in. ; br2 19:45 BP 177 / 102; Pulse 84; Resp 18 S; Pulse Ox 97% on R/A; br2 20:00 BP 171 / 95; Pulse 95; Resp 18; Pulse Ox 97% on R/A; br2 20:15 BP 167 / 111; Pulse 80; Resp 18; Pulse Ox 98% on R/A; br2 20:30 BP 176 / 97; Pulse 81; Resp 18; Pulse Ox 100% on R/A; br2 21:15 BP 174 / 94; Pulse 84; Resp 18; Pulse Ox 98% ; br2 19:33 Body Mass Index 20.81 (65.77 kg, 177.8 cm) br2 NIH Stroke Scale Scores: 19:15 NIHSS Score: 2 br2 19:34 NIHSS Score: 2 edward MDM: 18:56 Medical Screening Exam initiated [facility] 19:35 Data reviewed: vital signs, nurses notes, EMS record, lab test result(s), EKG, edward radiologic studies, plain films. Consideration of Admission/Observation Escalation of care including admission/observation considered. I considered the following discharge prescriptions or medication management in the emergency department Medications were administered in the Emergency Department. See MAR. Independent interpretation of the following test(s) in the Emergency Department X-Ray: My interpretation is cxr. CT Scan: My interpretation is ct , cta head , neck neg. Test considered but Not performed: EKG: no mri available. Historians other than the Patient: Family Member: sons both well informed. Care significantly affected by the following chronic conditions: ms, ra, scleraderma, raynauds. Counseling: I had a detailed discussion with the patient and/or guardian regarding the historical points, exam findings, and any diagnostic results supporting the discharge/admit diagnosis, lab results, radiology results, the need to transfer to another facility, for higher level of care, [facility] does not immediately have the required specialist. 20:07 ED course: Patient signed out to me by Dr. Negron. Patient is a 69-year-old female sp3 with expressive aphasia and slurred speech that presented with onset of symptoms at 630. Dr. Negron ordered TNKase at 730 and patient is improving. Patient is excepted now at [facility] neurological ICU after my conference with them. Labetalol 10 mg IV given for blood pressure of 171 with target blood pressure 160. Remainder vital signs are normal and patient has no significant headache. Transportation service initiated for transfer to [facility].. 05/22 18:53 Order name: Basic Metabolic Panel; Complete Time: 19:40 sb4 05/22 18:53 Order name: CBC with Diff; Complete Time: 19:25 sb4 05/22 18:53 Order name: Hepatic Function; Complete Time: 19:40 sb4 05/22 18:53 Order name: High Sensitivity Troponin; Complete Time: 19:40 sb4 05/22 18:53 Order name: Magnesium; Complete Time: 19:40 sb4 05/22 18:53 Order name: Protime (+inr); Complete Time: 19:25 sb4 05/22 18:53 Order name: Ptt, Activated; Complete Time: 19:25 sb4 05/22 19:09 Order name: Lipid Profile; Complete Time: 19:40 EDMS 05/22 19:09 Order name: C-Reactive Protein; Complete Time: 19:40 EDMS 05/22 18:53 Order name: CT Head Angio; Complete Time: 19:25 sb4 05/22 18:53 Order name: CT Neck Angio; Complete Time: 19:25 sb4 05/22 18:53 Order name: CT Stroke Brain w/o Contrast; Complete Time: 19: sb4 05/22 18:53 Order name: Stroke CXR 1 View; Complete Time: 20:05/22 18:53 Order name: Accucheck 05/22 18:53 Order name: Cardiac monitoring; Complete Time: : sb05/22 18:53 Order name: EKG - Nurse/Tech; Complete Time: 05/22 18:53 Order name: IV Saline Lock; Complete Time: 19:4 05/22 18:53 Order name: Labs collected and sent; Complete Time: : sb05/22 18:53 Order name: NPO; Complete Time: 05/22 18:53 Order name: O2 Per Protocol; Complete Time: 05/22 18:53 Order name: O2 Sat Monitoring; Complete Time: :05/22 18:53 Order name: Stroke Swallow Screen; Complete Time: : EC: Rate is 80 beats/min. Rhythm is regular. QRS [place] is Normal. FL interval is prolonged edward at 218 msec. QRS interval is normal. QT interval is normal. No Q waves. T waves are Normal. No ST changes noted. Clinical impression: NSR w/ Non-specific ST/T Changes, 1st degree heart block, and No evidence of ischemia. Interpreted by me. Reviewed by me. Administered Medications: 19:51 Drug: TNK FOR STROKE - Tenecteplase IV (Administer 10 ml NS flush BEFORE and br2 AFTER tenecteplase) 16 mg IV at per protocol once; 0.25mg/kg, MAX DOSE 25 mg, IVP over 5 seconds {Co-Signature: [email or web address] (Anabela Christiansen).} Route: IV; Rate: per protocol; Site: left antecubital; 19:55 Follow up: Response: No adverse reaction; IV Intake: 3.2ml br2 :53 Drug: NS 0.9% IV 1000 ml IV at 1000 ml once; to be given as a bolus over 60 minutes br2 Route: IV; Rate: 1000 ml; Site: left antecubital; 21:00 Follow up: Response: No adverse reaction; IV Status: Completed infusion; IV Intake: br2 1000ml 19:53 Drug: foLIC Acid IVPB 1 mg IVPB once Route: IVPB; Site: left antecubital; br2 20:30 Follow up: Response: No adverse reaction; IV Status: Completed infusion; IV Intake: br2 0.2ml 19:53 Drug: Famotidine IVP 20 mg IVP once; dilute with 10 mL 0.9% NaCl; give over 2 minutes br2 Route: IVP; Site: left antecubital; 20:20 Follow up: Response: No adverse reaction br2 20:10 Drug: Labetalol IV 10 mg IV at calculated rate once Route: IV; Rate: calculated rate; br2 Site: left antecubital; 20:40 Follow up: Response: No adverse reaction; IV Status: Completed infusion; IV Intake: 1ml br2 21:23 Drug: Labetalol IV 10 mg IV at calculated rate once Route: IV; Rate: calculated rate; br2 Site: left antecubital; 21:25 Follow up: Response: Medication Administered at Departure; IV Status: Completed br2 infusion; IV Intake: 1ml Disposition Summary: 05/22/24 19:44 Transfer Ordered Notes: Transfer Location: [facility] edward Reason: Higher level of care edward Condition: Fair edward Problem: new edward Symptoms: have improved edward Accepting Physician: to church(05/22/24 21:38) br2 Diagnosis - Aphasia following cerebral infarction edward - Aphasia edward - Cerebral infarction, unspecified - Acute edward Forms: - Medication Reconciliation Form edward - SBAR form edward Critical care time excluding procedures: 21:19 Critical care time: Bedside Care: 10 minutes, Consultation: 10 minutes, Family sp3 Intervention: 10 minutes. Total time: 30 minutes NIH Stroke Scale - NIH Stroke Score Date: 05/22/2024 Time: 19:15 Total Score = 2 10. Dysarthria (speech clarity - read or repeat words) - 0(Normal) 11. Extinction and Inattention (visual/tactile/auditory/spatial/personal) - 0(No abnormality) 1a. Level of Consciousness (LOC) - 0(Alert) 1b. Level of Consciousness (LOC) (Month \T\ Age) - 1(One) 1c. LOC Commands (Open \T\ Closes Eyes/Corporate Health Consultant) - 0(Both) 2. Best Gaze (Lateral Gaze Paresis) - 0(Normal) 3. Visual Field Loss - 0(No visual loss) 4. Facial Palsy - 0(Normal) 5a. Left Arm: Motor (10-second hold) - 0(No drift) 5b. Right Arm: Motor (10-second hold) - 0(No drift) 6a. Left Leg: Motor (5-second hold - always test supine) - 0(No drift) 6b. Right Leg: Motor (5-second hold - always test supine) - 0(No drift) 7. Limb Ataxia (finger/nose \T\ heel/zeng - test with eyes open) - 0(Absent) 8. Sensory Loss (pinprick arms/legs/face) - 0(Normal) 9. Best Language: Aphasia (description/naming/reading) - 1(Mild to moderate aphasia) Initials: br2 NIH Stroke Scale - NIH Stroke Score Date: 05/22/2024 Time: 19:34 Total Score = 2 10. Dysarthria (speech clarity - read or repeat words) - 1(Mild to Moderate) 11. Extinction and Inattention (visual/tactile/auditory/spatial/personal) - 0(No abnormality) 1a. Level of Consciousness (LOC) - 0(Alert) 1b. Level of Consciousness (LOC) (Month \T\ Age) - 0(Both) 1c. LOC Commands (Open \T\ Closes Eyes/Corporate Health Consultant) - 0(Both) 2. Best Gaze (Lateral Gaze Paresis) - 0(Normal) 3. Visual Field Loss - 0(No visual loss) 4. Facial Palsy - 0(Normal) 5a. Left Arm: Motor (10-second hold) - 0(No drift) 5b. Right Arm: Motor (10-second hold) - 0(No drift) 6a. Left Leg: Motor (5-second hold - always test supine) - 0(No drift) 6b. Right Leg: Motor (5-second hold - always test supine) - 0(No drift) 7. Limb Ataxia (finger/nose \T\ heel/zeng - test with eyes open) - 0(Absent) 8. Sensory Loss (pinprick arms/legs/face) - 0(Normal) 9. Best Language: Aphasia (description/naming/reading) - 1(Mild to moderate aphasia) Initials: edward Signatures: Dispatcher [employer] Brett Beltran MD MD cha Williams, Irene, RN RN iw Lilly Shaver RN RN ld1 Ruy Duenas MD MD sp3 Marcia Siegel, PA-C PA-C sb4 Karie Malloy RN RN br2 Anabela Christiansen cp4 Corrections: (The following items were deleted from the chart) 19:08 18:58 LIPID PROFILE+C.LAB.BRZ ordered. EDMS EDMS 19:08 18:58 C-REACTIVE PROTEIN+C.LAB.BRZ ordered. EDMS EDMS 21:38 19:44 to church edward br2
--- NOTE | 2024-05-22 20:04 | RAD REPORT ---
Procedure: Chest Single View HISTORY: Cough COMPARISON: 2023 FINDINGS: The bilateral pulmonary opacities have mostly resolved. The residual opacities may be chronic. No significant pleural effusion noted. The heart is normal size.
[2024-05-22] MEDS ORDERED: LABETALOL 20 MG/4ML SYRINGE IV ONE (20:09)
[2024-05-22 21:58] VITALS: BP 174/94; O2SAT 98
--- NOTE | 2024-05-23 11:56 | EKG ---
Test Date: 2024-05-22 Test Time: 19:26:34 Call Center Operations Manager: DION MEASUREMENT RESULTS: Intervals: Rate: 80 TX: 218 QRSD: 82 QT: 402 QTc: 463 [place]: P: 57 TX: 218 QRS: 50 T: 80 INTERPRETIVE STATEMENTS: Sinus rhythm with 1st degree AV block Nonspecific ST and T wave abnormality Abnormal ECG Compared to ECG 04/16/2023 13:17:22 First degree AV block now present ST (T wave) deviation now present Prolonged QT interval no longer present Electronically Signed On 05-23-24 11:56:20 CONCRETE ENGINEERING TECHNICIAN by Christopher Lund
== END 2024-05-22 21:38 | disposition short-term general hospital (02) ==
LOC: ER 18:44
DX: I63.9 Cerebral infarction, unspecified (principal); R29.702 NIHSS score 2
CPT/HCPCS: 96365; 92977; 93005; 85025; 80048; 36415; 83735; 85610; 80061; 80076; 85730; 84484; 86140; 70496; 70498; 70450; 71045; 96375; 99285; Q9967; J3101; J7030